=== PATIENT | female | born 1985 | race Caucasian/White ===

== ENCOUNTER 2016-09-02 17:10 | Emergency (ER) | payer SELFPAY ==
[~2016-09-02] VITALS: Ht 154.9 cm; Wt 61.2 kg
[~2016-09-02 17:10] MED LIST: AMOX500C2 PO; PRM25T PO
--- OUTSIDE RECORDS SUMMARY | 2016-09-02 17:15 | XMS REPORT | Continuity of Care Document ---
Author Author [facility] Organization [facility] Address Unknown Phone Unavailable Care Team Providers Care Voucher Clerk Name Role Phone VERO HA DO PCP Insurance Providers Payer Name Policy Number Subscriber Name Relationship Unknown Tyree Randall 19 Self / Same As Patient Advance Directives Directive Response Recorded Date/Time Advance Directives No 06/14/16 2:05pm Resuscitation Status Full Code 06/14/16 2:05pm Chief Complaint and Reason for Visit Chief Complaint Cough/Cold/Flu Symptoms Reason for Visit Sinusitis, acute Problems Active Problems Medical Problem Onset Date Status Abnormal vaginal bleeding Unknown Acute Cervicitis Unknown Acute Pelvic pain Unknown Acute Sinusitis, acute Unknown Acute Medications Current Home Medications Medication Dose Units Route Directions Days/Qty Instructions Start Date Amoxicillin 500 Mg 1,000 Mg Oral Three Times A Day 60 06/14/16 Past Home Medications Medication Directions Ordered Status Promethazine Hcl 25 Mg Tablet, 1 Tab Oral Four Times Daily 11/05/10 Discontinued Social History Social History Problem Response Recorded Date/Time Alcohol Use Occasionally Uses 04/10/2015 8:55am Recreational Drug Use No 04/10/2015 8:55am Recent Foreign Travel No 06/14/2016 2:05pm Recent Infectious Disease Exposure No 06/14/2016 2:05pm Smoking Status Current Everyday Smoker 06/14/2016 2:05pm Type Used Cigarettes 06/14/2016 2:05pm Recent Hopitalizations N ovarian cyst removal 06/14/2016 2:05pm Query Response Start Date Stop Date Smoking Status Current Everyday Smoker Hospital Discharge Instructions No hospital discharge instructions. Plan of Care Discharge Date 06/14/16 4:25pm Disposition 01 HOME, SELF-CARE Condition at Discharge Improved Instructions/Education Provided Sinusitis, Adult (DC) Forms Provided Work Release Form Prescriptions See Medication Section Referrals VERO HA DO - Primary Care Physician Additional Instructions/Education All discharge instructions reviewed with patient and/or family. Voiced understanding. Medications as instructed. Tylenol extra strength [id number] as directed for pain. Ibuprofen 800 mg by mouth every 8 hours as needed for pain. Afrin nasal spray 2-3 sprays in each nostril twice daily as needed for nasal congestion. Nasal saline spray as needed for nasal congestion. Cool humidifier. Follow-up with Dr. Ha if no improvement in symptoms. Return to the emergency department for worsened symptoms or any other concerns. Functional Status No functional status results. Allergies, Adverse Reactions, Alerts Allergen Type Severity Reaction Status Last Updated NKANo Known Allergies Allergy Unknown Active 06/14/16 Immunizations No immunization records. Vital Signs Acute Vital Signs Vital Response Date/Time Temperature (Fahrenheit) 97.4 degrees F (97.6 - 99.5) 06/14/2016 2:05pm Temperature (Calculated Celsius) 36.33410 degrees C (36.4 - 37.5) 06/14/2016 2:05pm Temperature Source Tympanic 06/14/2016 2:05pm Pulse Rate (adult) 100 bpm (60 - 90) 06/14/2016 2:05pm Respiratory Rate 18 bpm (12 - 24) 06/14/2016 2:05pm O2 Sat by Pulse Oximetry 98 % (88 - 100) 06/14/2016 2:05pm Blood Pressure 124/80 mm Hg 06/14/2016 2:05pm Blood Pressure Mean 95 mm Hg 06/14/2016 2:05pm Height (Feet) 5 feet 06/14/2016 2:05pm Height (Inches) 1.00 inches 06/14/2016 2:05pm Height (Calculated Centimeters) 154.112029 cm 06/14/2016 2:05pm Weight (Pounds) 120 pounds 06/14/2016 2:05pm Weight (Calculated Grams) 74271.085 gm 06/14/2016 2:05pm Weight (Calculated Kilograms) 54.303767 kilograms 06/14/2016 2:05pm Calculated BMI 21.09 06/14/2016 2:05pm Capillary Refill Capillary Refill Less Than 3 Seconds 06/14/2016 2:05pm Results Laboratory Results Test Name Result Units Flags Reference Collection Date/Time Result Date/ Time Comments Monoscreen NEGATIVE NEGATIVE 06/14/2016 2:51pm 06/14/2016 3:22pm Procedures No known history of procedures. Encounters Encounter Location Arrival/Admit Date Discharge/Depart Date Attending Provider Departed Emergency Room [facility] 06/14/16 1:38pm 06/14 4:25pm RTACI HOLLEY Recent Diagnosis
[2016-09-02] MEDS ORDERED: ORPHENADRINE 60 MG/2 ML (NORFLEX) AMP IM ONE (17:30)
[2016-09-02] MEDS ORDERED: KETOROLAC 60 MG/2 ML VIAL IM ONE (17:30)
[2016-09-02] MEDS ORDERED: NAPR500T PO (17:31)
[2016-09-02] MEDS ORDERED: fLEXERIL PO (17:31)
--- NOTE | 2016-09-02 17:32 | ED Upper Extremity ---
General Chief Complaint: Upper Extremity Stated Complaint: BILAT SHOULDER INJ/NUMBNESS Source: patient Exam Limitations: no limitations History of Present Illness Time seen by provider: 17:28 Initial Comments To ER with pain to the base of the neck on the right side that radiates down her hand as a sensation of tingling. She is stable able to make a fist and use her hand but states it is uncomfortable and feels heavy. This began 3 days ago. No injury. 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 Onset: last week Severity: moderate Pain/Injury Location: right shoulder Method of Injury: unknown Modifying Factors: Worse With Movement Allergies and Home Medications Allergies Coded Allergies: NKANo Known Allergies (Verified Allergy, Unknown, 06/14/16) Home Medications Amoxicillin 500 Mg Capsule #60 1,000 MG PO TID Prescribed by: TRACI HOLLEY on 06/14/16 1612 Constitutional: see HPI EENTM: see HPI Respiratory: no symptoms reported Cardiovascular: no symptoms reported Genitourinary: no symptoms reported Musculoskeletal: see HPI Skin: no symptoms reported Psychiatric/Neurological: No Symptoms Reported Past Esloblk-Ctkwiy-Csattr Hx Patient Social History Type Used: Cigarettes Recent Foreign Travel: No Contact w/Someone Who Travel: No Recent Hopitalizations: No (ovarian cyst removal) Immunizations Up To Date Tetanus Booster (TDap): More than 5yrs Surgeries HX Surgeries: Yes (ovarian cyst) Surgeries: Tubal Ligation Respiratory Hx Respiratory Disorders: No Cardiovascular Hx Cardiac Disorders: No Neurological Hx Neurological Disorders: No Reproductive System Hx Reproductive Disorders: No Female Reproductive Disorders: Ovarian Cyst Genitourinary Hx Genitourinary Disorders: No Gastrointestinal Hx Gastrointestinal Disorders: No Musculoskeletal Hx Musculoskeletal Disorders: No Endocrine Hx Endocrine Disorders: No HEENT HX ENT Disorders: No Psychosocial Hx Psychiatric Problems: No Blood Transfusions Hx Blood Disorders: No Family Medical History Significant Family History: Cancer, Diabetes Physical Exam Vital Signs Capillary Refill : General Appearance: WD/WN no apparent distress HEENT: PERRL/EOMI normal ENT inspection Neck: non-tender full range of motion Respiratory: no respiratory distress no accessory muscle use Gastrointestinal: non tender soft Shoulder: normal inspection non-tender Elbow/Forearm: normal inspection, non-tender, Right Wrist: Yes normal inspection, Yes non-tender Hand: normal inspection, non-tender, Right Neurologic/Tendon: normal sensation normal motor functions normal tendon functions Neurologic/Psychiatric: alert normal mood/affect oriented x 3 Skin: normal color Departure Impression Impression: Primary Impression: Cervical radiculopathy Disposition: 01 HOME, SELF-CARE Condition: Stable Departure-Patient Inst. Decision time for Depature: 17:30 Referrals: [facility] (PCP/Family) Primary Care Physician Patient Instructions: Radiculopathy Add. Discharge Instructions: 1. Return to ER for any concerns 2. Follow-up with your doctor next week to discuss MRI if her pain continues 3. All discharge instructions reviewed with patient and/or family. Voiced understanding. Scripts Naproxen (Naprosyn)500 Mg [id number] Mg PO BID PRN PAIN #14 TAB Prov:GIL COOK APRN 09/02/16 [fLEXERIL] No Conflict Check5 Mg PO TID PRN PAIN #20 Prov:GIL COOK APRN 09/02/16 Work/School Note: Work Release Form Date Seen in the Emergency Department: Sep 02, 2016 Return to Work: Sep 03, 2016 Other Restrictions Listed Below: Do not raise the right hand above shoulder and no lifting greater >5LBS GIL COOK APRN Sep 02, 2016 17:32
[2016-09-02 17:37] VITALS: BP 125/82
== END 2016-09-02 17:37 | disposition home or self-care (01) ==
LOC: EDUNIT# 17:10 → ER 17:12
DX: M54.12 Radiculopathy, cervical region (principal)
CPT/HCPCS: 96372; 99282

== ENCOUNTER 2017-01-21 12:34 | Emergency (ER) | payer SELFPAY ==
[~2017-01-21] VITALS: Ht 152.4 cm; Wt 59.0 kg
[~2017-01-21 12:34] MED LIST changes: +NAPR500T PO; +fLEXERIL PO
[2017-01-21] MEDS ORDERED: PRD20T PO (13:21)
--- NOTE | 2017-01-21 13:21 | ED Upper Extremity ---
General Chief Complaint: Neurological Problems Stated Complaint: RT ARM GOING NUMB Nursing Triage Note: PT AMBULATED TO ROOM. PT STATES HER RIGHT ARM HAS BEEN GOING NUMB FROM SHOULDER DOWN TO PT FINGERS, THIS HAS BEEN HAPPENING SINCE AUGUST OF THIS YEAR. Nursing Sepsis Screen: No Definite Risk Source: patient Exam Limitations: no limitations History of Present Illness Time seen by provider: 13:18 Initial Comments Patient presents to ER with persistent pain and tingling to the right arm. She states that she has a numb sensation. His pain seems to begin at the shoulder and progresses distally all the way down to the fingertips affecting the middle ring and little finger of the right hand. Occasionally while she is at work the pain will radiate up from the shoulder to the base of her neck. This is been bothering her since at least August of this year. She saw her primary care provider she states felt this was carpal tunnel syndrome. Onset: just prior to arrival Severity: moderate Pain/Injury Location: right shoulder, right arm, right elbow, right forearm, right wrist, right hand Method of Injury: unknown Allergies and Home Medications Allergies Coded Allergies: NKANo Known Allergies (Verified Allergy, Unknown, 06/14/16) Home Medications Naproxen 500 Mg Tablet, 500 MG PO BID PRN for PAIN, #14 Prescribed by: GIL COOK on 09/02/16 1731 Prednisone 20 Mg Tab, 40 MG PO DAILY, #8 Prescribed by: GIL COOK on 01/21/17 1321 [fLEXERIL] , 5 MG PO TID PRN for PAIN, #20 Prescribed by: GIL COOK on 09/02/16 1731 Constitutional: see HPI EENTM: see HPI Respiratory: no symptoms reported Cardiovascular: no symptoms reported Genitourinary: no symptoms reported Musculoskeletal: see HPI Skin: no symptoms reported Psychiatric/Neurological: No Symptoms Reported Past Ijwjjit-Kbsffp-Mvncod Hx Patient Social History Alcohol Use: Denies Use Recreational Drug Use: No Smoking Status: Current Everyday Smoker Type Used: Cigarettes 2nd Hand Smoke Exposure: No Recent Foreign Travel: No Contact w/Someone Who Travel: No Recent Infectious Disease Expo: No Recent Hopitalizations: No Immunizations Up To Date Tetanus Booster (TDap): More than 5yrs Seasonal Allergies Seasonal Allergies: No Surgeries HX Surgeries: Yes (ovarian cyst) Surgeries: Tubal Ligation Respiratory Hx Respiratory Disorders: No Cardiovascular Hx Cardiac Disorders: No Neurological Hx Neurological Disorders: No Reproductive System Hx Reproductive Disorders: No Female Reproductive Disorders: Ovarian Cyst Genitourinary Hx Genitourinary Disorders: No Gastrointestinal Hx Gastrointestinal Disorders: No Musculoskeletal Hx Musculoskeletal Disorders: No Endocrine Hx Endocrine Disorders: No HEENT HX ENT Disorders: No Psychosocial Hx Psychiatric Problems: No Blood Transfusions Hx Blood Disorders: No Family Medical History Significant Family History: Cancer, Diabetes Physical Exam Vital Signs Vital Sign - Last 12Hours 01/21/17 12:50 Temp 98.1 Pulse 88 Resp 20 B/P (MAP) 110/84 Pulse Ox 98 O2 Delivery Room Air Capillary Refill : Less Than 3 Seconds General Appearance: WD/WN, no apparent distress HEENT: PERRL/EOMI, normal ENT inspection Neck: non-tender, full range of motion Respiratory: no respiratory distress, no accessory muscle use Gastrointestinal: normal bowel sounds, non tender Shoulder: normal inspection, non-tender Elbow/Forearm: normal inspection, non-tender, Right Wrist: Yes normal inspection Hand: normal inspection, non-tender, Right Neurologic/Tendon: No normal sensation, normal motor functions, normal tendon functions Neurologic/Psychiatric: alert, normal mood/affect, oriented x 3 Skin: normal color, warm/dry Progress/Results/Core Measures Results/Orders Vital Signs/I&O Vital Sign - Last 12Hours 01/21/17 12:50 Temp 98.1 Pulse 88 Resp 20 B/P (MAP) 110/84 Pulse Ox 98 O2 Delivery Room Air Blood Pressure Mean: 93 Departure Impression Impression: Primary Impression: Cervical radiculopathy Disposition: 01 HOME, SELF-CARE Condition: Stable Departure-Patient Inst. Decision time for Depature: 13:20 Referrals: CHARISSA VALENZUELA BRIAN J MD Patient Instructions: Radiculopathy Add. Discharge Instructions: 1. Prednisone as directed 2. Return to ER for any concerns All discharge instructions reviewed with patient and/or family. Voiced understanding. Scripts Prednisone (Prednisone) 20 Mg Tab 40 MG PO DAILY, #8 TAB Prov: GIL COOK APRN 01/21/17 Work/School Note: Work Release Form Date Seen in the Emergency Department: Jan 21, 2017 Return to Work: Jan 22, 2017 GIL COOK APRN Jan 21, 2017 13:21
[2017-01-21 13:36] VITALS: BP 110/84
== END 2017-01-21 13:36 | disposition home or self-care (01) ==
LOC: EDUNIT# 12:34 → ER 12:37
DX: M54.12 Radiculopathy, cervical region (principal); F17.210 Nicotine dependence, cigarettes, uncomplicated
CPT/HCPCS: 99283

== ENCOUNTER 2017-07-12 03:05 | Emergency (ER) | payer SELFPAY ==
[~2017-07-12] VITALS: Ht 154.9 cm; Wt 61.2 kg
[~2017-07-12 03:05] MED LIST changes: +NAPR-1071 PO; -NAPR500T PO; +PRD20T PO
--- OUTSIDE RECORDS SUMMARY | 2017-07-12 03:10 | XMS REPORT ---
Author Author SHOBHA FENTON [facility] Address Unknown Care Team Providers Care Accounts Payable Or Receivable Clerk Name Role Phone SHOBHA FENTON Unavailable PROBLEMS Unknown Problems ALLERGIES No Known Allergies SOCIAL HISTORY Never Assessed PLAN OF CARE Activity Details Follow Up 1 Week Reason:Multi TE VITAL SIGNS Height 61 in 2016-11-19 Blood pressure systolic 124 mmHg 2016-11-19 Blood pressure diastolic 88 mmHg 2016-11-19 MEDICATIONS Medication Instructions Dosage Frequency Start Date End Date Duration Status Amoxicillin 500 MG Orally every 8 hrs 1 tablet 8h Nov, 10 days Active Naproxen 500 MG Orally Twice a day 1 tablet as needed for pain 12h Active Amoxicillin 500 MG Orally 4 times daily 1 capsule 7 days Active RESULTS No Results PROCEDURES Procedure Date Ordered Result Body Site LTD ORAL EVALUATION - PROBLEM FOCUS November 19, 2016 INTRAORL-PERIAPICAL 1 FILM [id number] November 19, 2016 INTRAORL-PERIAPICAL EA ADD FILM November 19, 2016 IMMUNIZATIONS No Known Immunizations MEDICAL (GENERAL) HISTORY Type Description Date Surgical History cyst removal
--- OUTSIDE RECORDS SUMMARY | 2017-07-12 03:10 | XMS REPORT ---
Author Author SRIDHAR WHITE [facility] Address [address] [place] [address] Care Team Providers Care Biomathematician Name Role Phone SRIDHAR WHITE Unavailable PROBLEMS Unknown Problems ALLERGIES No Information SOCIAL HISTORY Never Assessed PLAN OF CARE VITAL SIGNS MEDICATIONS No Known Medications RESULTS No Results PROCEDURES No Known procedures IMMUNIZATIONS No Known Immunizations MEDICAL (GENERAL) HISTORY Type Description Date Surgical History cyst removal
--- OUTSIDE RECORDS SUMMARY | 2017-07-12 03:10 | XMS REPORT ---
Author Author SRIDHAR WHITE [facility] Address [address] [place] [address] Care Team Providers Care Printing Press Machinist Name Role Phone SRIDHAR WHITE Unavailable PROBLEMS Unknown Problems ALLERGIES No Information SOCIAL HISTORY Never Assessed PLAN OF CARE Activity Details Follow Up 2-3 Weeks Reason:F/U PT VITAL SIGNS MEDICATIONS No Known Medications RESULTS No Results PROCEDURES Procedure Date Ordered Result Body Site THERAPEUTIC EXERCISES Sep 15, 2016 IMMUNIZATIONS No Known Immunizations MEDICAL (GENERAL) HISTORY Type Description Date Surgical History cyst removal
--- OUTSIDE RECORDS SUMMARY | 2017-07-12 03:11 | XMS REPORT ---
Author Author SRIDHAR WHITE [facility] Address [address] [place] [address] Care Team Providers Care Cap Cutter Name Role Phone SRIDHAR WHITE Unavailable PROBLEMS Unknown Problems ALLERGIES No Information SOCIAL HISTORY Never Assessed PLAN OF CARE Activity Details Follow Up 2 Weeks Reason:F/U [place] pain VITAL SIGNS MEDICATIONS No Known Medications RESULTS No Results PROCEDURES Procedure Date Ordered Result Body Site PT EVAL MOD COMPLEX 30 MIN Sep 10, 2016 THERAPEUTIC EXERCISES Sep 10, 2016 IMMUNIZATIONS No Known Immunizations MEDICAL (GENERAL) HISTORY Type Description Date Surgical History cyst removal
--- OUTSIDE RECORDS SUMMARY | 2017-07-12 03:11 | XMS REPORT ---
Author Author LEOPOLDO DOMINGUEZ [facility] Address [address] [place] [address] Care Team Providers Care Supervisor [place] Name Role Phone LEOPOLDO DOMINGUEZ Unavailable PROBLEMS Unknown Problems ALLERGIES Substance Reaction Event Type Date Status N.K.D.A. Unknown Non Drug Allergy Sep, Unknown SOCIAL HISTORY No smoking Hx information available PLAN OF CARE Activity Details Follow Up with Mahnaz Reason: VITAL SIGNS Height 61 in 2016-09-09 Weight 131.6 lbs 2016-09-09 Temperature 98.6 degrees Fahrenheit 2016-09-09 Heart Rate 72 bpm 2016-09-09 Respiratory Rate 18 2016-09-09 BMI 24.86 kg/m2 2016-09-09 Blood pressure systolic 118 mmHg 2016-09-09 Blood pressure diastolic 82 mmHg 2016-09-09 MEDICATIONS Medication Instructions Dosage Frequency Start Date End Date Duration Status Naproxen 500 MG Orally Twice a day 1 tablet as needed for pain 12h Active Cyclobenzaprine HCl 5 mg Orally Three times a day 1 tablet as needed for pain 8h Active RESULTS No Results PROCEDURES Procedure Date Ordered Related Diagnosis Body Site Office Visit, New Pt., Level 2 Sep 09, 2016 IMMUNIZATIONS No Known Immunizations
[2017-07-12] MEDS ORDERED: NS IV 1000 ML 1,000 ML IV ONE (03:48)
[2017-07-12 03:54] LABS: BILIRUBIN,URINE NEGATIVE (NEGATIVE); KETONES,URINE NEGATIVE (NEGATIVE); LEUKOCYTE ESTERASE ,URINE 1+ (NEGATIVE); NITRITE,URINE NEGATIVE (NEGATIVE); PH,URINE 8 (5-9); PROTEIN,URINE NEGATIVE (NEGATIVE); UROBILINOGEN,URINE 1 MG/DL (NORMAL)
[2017-07-12 04:01] LABS: WBC,URINE 0-2 /HPF
[2017-07-12 04:06] LABS: BASOPHILS % (AUTO) 0 % (0-10); EOSINOPHILS # (AUTO) 0.3 10^3/uL (0.0-0.3); EOSINOPHILS % (AUTO) 2 % (0-10); LYMPHOCYTES # (AUTO) 1.2 X 10^3 (1.0-4.0); LYMPHOCYTES % (AUTO) 7 % (12-44); MEAN CORPUSCULAR HEMOGLOBIN 33 PG (25-34); MEAN CORPUSCULAR HGB CONC 35 G/DL (32-36); MEAN CORPUSCULAR VOLUME 94 FL (80-99); MEAN PLATELET VOLUME 10.4 FL (7.4-10.4); MONOCYTES # (AUTO) 0.8 X 10^3 (0.0-1.0); MONOCYTES % (AUTO) 5 % (0-12); NEUTROPHILS # (AUTO) 13.4 X 10^3 (1.8-7.8); NEUTROPHILS % (AUTO) 85 % (42-75); PLATELET COUNT 330 10^3/uL (130-400); RED BLOOD COUNT 4.62 10^6/uL (4.35-5.85); RED CELL DISTRIBUTION WIDTH 12.9 % (10.0-14.5); WHITE BLOOD COUNT 15.8 10^3/uL (4.3-11.0)
[2017-07-12 04:25] LABS: ALANINE AMINOTRANSFERASE 14 U/L (0-55); ALBUMIN 4.2 GM/DL (3.2-4.5); ANION GAP 11 MMOL/L (5-14); ASPARTATE AMINO TRANSFERASE 14 U/L (5-34); BILIRUBIN,TOTAL 0.4 MG/DL (0.1-1.0); BLOOD UREA NITROGEN 9 MG/DL (7-18); BUN/CREATININE RATIO 14; CALCIUM 8.7 MG/DL (8.5-10.1); CARBON DIOXIDE 20 MMOL/L (21-32); CHLORIDE 107 MMOL/L (98-107); CREATININE SERUM 0.64 MG/DL (0.60-1.30); GFR ESTIMATED > 60; GLUCOSE 110 MG/DL (70-105); POTASSIUM 3.8 MMOL/L (3.6-5.0); SODIUM 138 MMOL/L (135-145); TOTAL PROTEIN 6.5 GM/DL (6.4-8.2)
[2017-07-12 04:29] LABS: BAND NEUTROPHILS 0 %; BASOPHILS % (MANUAL) 1 %; EOSINOPHILS % (MANUAL) 3 %; LYMPHOCYTES % (MANUAL) 5 %; NEUTROPHILS % (MANUAL) 82 %
--- NOTE | 2017-07-12 04:29 | ED GI ---
General Chief Complaint: Abdominal/GI Problems Stated Complaint: VOMITING AB PAIN Nursing Triage Note: Pt c/o abdominal pain that began last night. Sepsis Screen: No Definite Risk Source of Information: Patient Exam Limitations: No Limitations History of Present Illness Time Seen By Provider: 03:50 Initial Comments Here with report of abdominal pain and diarrhea that began last night. She did take a Zofran and Pepcid for nausea and stomach upset and that did help for a little while but then worsened. Also complains of chills and back pain. Denies dysuria. Timing/Duration: 12 Hours Severity/Quality: Moderate Location: Generalized Abdomen Radiation: Back Activities at Onset: None Modifying Factors: Improves With Antacids Associated Symptoms: Back Pain, Fever/Chills, Fatigue, Heartburn, Nausea/ Vomiting, No Swelling/Mass in Abdomen, Weakness Allergies and Home Medications Allergies Coded Allergies: NKANo Known Allergies (Verified Allergy, Unknown, 06/14/16) Home Medications Naproxen 500 Mg Tablet, 500 MG PO BID PRN for PAIN, #14 Prescribed by: GIL COOK on 09/02/16 1731 Prednisone 20 Mg Tab, 40 MG PO DAILY, #8 Prescribed by: GIL COOK on 01/21/17 1321 [fLEXERIL] , 5 MG PO TID PRN for PAIN, #20 Prescribed by: GIL COOK on 09/02/16 1731 Review of Systems Constitutional: see HPI, chills, No fever EENTM: No Symptoms Reported Respiratory: No Symptoms Reported Cardiovascular: No Symptoms Reported Gastrointestinal: See HPI, Abdominal Pain, Diarrhea, Nausea, Vomiting Genitourinary: No Symptoms Reported Musculoskeletal: back pain, muscle pain Skin: no symptoms reported Psychiatric/Neurological: No Symptoms Reported All Other Systems Reviewed Negative Unless Noted: Yes Past Ncqqinf-Kputri-Kyjhqd Hx Patient Social History Alcohol Use: Denies Use Recreational Drug Use: No Smoking Status: Current Everyday Smoker Type Used: Cigarettes 2nd Hand Smoke Exposure: No Recent Foreign Travel: No Contact w/Someone Who Travel: No Recent Infectious Disease Expo: No Recent Hopitalizations: No Physical Abuse: No Sexual Abuse: No Mistreated: No Fear: No Immunizations Up To Date Tetanus Booster (TDap): More than 5yrs Seasonal Allergies Seasonal Allergies: No Surgeries History of Surgeries: Yes (ovarian cyst) Surgeries: Tubal Ligation Respiratory History of Respiratory Disorde: No Cardiovascular History of Cardiac Disorders: No Neurological History of Neurological Disord: No Reproductive System Hx Reproductive Disorders: No Female Reproductive Disorders: Ovarian Cyst Genitourinary History of Genitourinary Disor: No Gastrointestinal History of Gastrointestinal Di: No Musculoskeletal History of Musculoskeletal Dis: No Endocrine History of Endocrine Disorders: No HEENT History of HEENT Disorders: No Cancer History of Cancer: No Psychosocial History of Psychiatric Problem: No Suicide Risk Score: 1 Integumentary History of Skin or Integumenta: No Blood Transfusions History of Blood Disorders: No Reviewed Nursing Assessment Reviewed/Agree w Nursing PMH: Yes Family Medical History Significant Family History: No Pertinent Family Hx, Cancer, Diabetes Physical Exam Vital Signs VS - Last 72 Hours, by Label 07/12/17 03:23 Temp 98.2 Pulse 101 Resp 18 B/P (MAP) 117/85 (96) Pulse Ox 98 O2 Delivery Room Air Capillary Refill : Less Than 3 Seconds General Appearance: WD/WN, no apparent distress HEENT: PERRL/EOMI, pharynx normal Neck: full range of motion, supple Respiratory: lungs clear, normal breath sounds Cardiovascular: no murmur, tachycardia Peripheral Pulses: 2+ Dorsalis Pedis (R), 2+ Left Dors-Pedis (L), 2+ Radial Pulses (R), 2+ Radial Pulses (L) Gastrointestinal: non tender, soft Extremities: non-tender, normal inspection Back: normal inspection, no CVA tenderness, no vertebral tenderness Neurologic/Psychiatric: alert, oriented x 3 Skin: normal color, warm/dry Progress/Results/Core Measures Results/Orders Lab Results Laboratory Tests Test 07/12/17 03:35 07/12/17 03:55 Range/Units Urine Color YELLOW Urine Clarity SLIGHTLY CLOUDY Urine pH 8 5-9 Urine Specific Sisters 1.010 L 1.016-1.022 Urine Protein NEGATIVE NEGATIVE Urine Glucose (UA) NEGATIVE NEGATIVE Urine Ketones NEGATIVE NEGATIVE Urine Nitrite NEGATIVE NEGATIVE Urine Bilirubin NEGATIVE NEGATIVE Urine Urobilinogen 1 NORMAL MG/DL Urine Leukocyte Esterase 1+ H NEGATIVE Urine RBC (Auto) NEGATIVE NEGATIVE Urine RBC NONE /HPF Urine WBC 0-2 /HPF Urine Squamous Epithelial Cells 10-25 H /HPF Urine Crystals PRESENT H /LPF Urine Amorphous Sediment FEW NEEMA PHOSPHATE H /LPF Urine Bacteria MODERATE H /HPF Urine Casts NONE /LPF Urine Mucus MODERATE H /LPF Urine Culture Indicated YES Urine Opiates Screen NEGATIVE NEGATIVE Urine Oxycodone Screen NEGATIVE NEGATIVE Urine Methadone Screen NEGATIVE NEGATIVE Urine Propoxyphene Screen NEGATIVE NEGATIVE Urine Barbiturates Screen NEGATIVE NEGATIVE Ur Tricyclic Antidepressants Screen NEGATIVE NEGATIVE Urine Phencyclidine Screen NEGATIVE NEGATIVE Urine Amphetamines Screen POSITIVE H NEGATIVE Urine Methamphetamines Screen POSITIVE H NEGATIVE Urine Benzodiazepines Screen NEGATIVE NEGATIVE Urine Cocaine Screen NEGATIVE NEGATIVE Urine Cannabinoids Screen NEGATIVE NEGATIVE White Blood Count 15.8 H 4.3-11.0 10^3/uL Red Blood Count 4.62 4.35-5.85 10^6/uL Hemoglobin 15.1 11.5-16.0 G/DL Hematocrit 44 35-52 % Mean Corpuscular Volume 94 80-99 FL Mean Corpuscular Hemoglobin 33 25-34 PG Mean Corpuscular Hemoglobin Concent 35 32-36 G/DL Red Cell Distribution Width 12.9 10.0-14.5 % Platelet Count 330 130-400 10^3/uL Mean Platelet Volume 10.4 7.4-10.4 FL Neutrophils (%) (Auto) 85 H 42-75 % Lymphocytes (%) (Auto) 7 L 12-44 % Monocytes (%) (Auto) 5 0-12 % Eosinophils (%) (Auto) 2 0-10 % Basophils (%) (Auto) 0 0-10 % Neutrophils # (Auto) 13.4 H 1.8-7.8 X 10^3 Lymphocytes # (Auto) 1.2 1.0-4.0 X 10^3 Monocytes # (Auto) 0.8 0.0-1.0 X 10^3 Eosinophils # (Auto) 0.3 0.0-0.3 10^3/uL Basophils # (Auto) 0.0 0.0-0.1 10^3/uL Neutrophils % (Manual) 82 % Lymphocytes % (Manual) 5 % Monocytes % (Manual) 9 % Eosinophils % (Manual) 3 % Basophils % (Manual) 1 % Band Neutrophils 0 % Toxic Granulation 1+ Blood Morphology Comment NORMAL Sodium Level 138 135-145 MMOL/L Potassium Level 3.8 3.6-5.0 MMOL/L Chloride Level 107 98-107 MMOL/L Carbon Dioxide Level 20 L 21-32 MMOL/L Anion Gap 11 5-14 MMOL/L Blood Urea Nitrogen 9 7-18 MG/DL Creatinine 0.64 0.60-1.30 MG/DL Estimat Glomerular Filtration Rate > 60 BUN/Creatinine Ratio 14 Glucose Level 110 H 70-105 MG/DL Calcium Level 8.7 8.5-10.1 MG/DL Total Bilirubin 0.4 0.1-1.0 MG/DL Aspartate Amino Transf (AST/SGOT) 14 5-34 U/L Alanine Aminotransferase (ALT/SGPT) 14 0-55 U/L Alkaline Phosphatase 66 40-136 U/L C-Reactive Protein High Sensitivity 0.50 0.00-0.50 MG/DL Total Protein 6.5 6.4-8.2 GM/DL Albumin 4.2 3.2-4.5 GM/DL My Orders Orders - EUGENIA ALBERT MD Cbc With Automated Diff (07/12/17 03:48) Comprehensive Metabolic Panel (07/12/17 03:48) Hs C Reactive Protein (07/12/17 03:48) Drug Screen Stat (Urine) (07/12/17 03:48) Ua Culture If Indicated (07/12/17 03:48) Saline Lock/Iv-Start (07/12/17 03:48) Ns Iv 1000 Ml (Sodium Chloride 0.9%) (07/12/17 03:48) Urine Culture (07/12/17 03:35) Manual Differential (07/12/17 03:55) Ondansetron Injection (Zofran Injectio (07/12/17 05:30) Ketorolac Injection (Toradol Injection) (07/12/17 05:20) Rx-Ondansetron Po (Rx-Zofran Po) (07/12/17 05:20) Ketorolac Injection (Toradol Injection) (07/12/17 05:21) Famotidine Injection (Pepcid Injection) (07/12/17 05:21) Rx-Ondansetron Po (Rx-Zofran Po) (07/12/17 05:22) Famotidine Injection (Pepcid Injection) (07/12/17 05:26) Medications Given in ED Current Medications Medications Dose Ordered Sig/Nicolette Route Start Time Stop Time Status Last Admin Dose Admin Sodium Chloride 1,000 ml @ 0 mls/hr Q0M ONCE IV 07/12/17 03:48 07/12/17 03:50 DC 07/12/17 03:59 0 MLS/HR Vital Signs/I&O Vital Sign - Last 12Hours 07/12/17 03:23 Temp 98.2 Pulse 101 Resp 18 B/P (MAP) 117/85 (96) Pulse Ox 98 O2 Delivery Room Air Blood Pressure Mean: 96 Progress Note : Progress Note Seen and evaluated. IV, labs, UA, normal saline 1 L bolus ordered. Monitor patient. 0510: I did discuss with the patient about concerns for methamphetamine use. She admitted single use a few days ago. Cautioned to avoid this patient states that she had made that decision already. Pepcid 20 mg IV, Toradol 30 mg IV and Zofran go pack ordered. Discharged home with return precautions. Patient verbalize understanding instructions and agreement with plan. Departure Impression Impression: Primary Impression: Diarrhea Qualified Codes: R19.7 - Diarrhea, unspecified Additional Impressions: Nausea and vomiting Qualified Codes: R11.2 - Nausea with vomiting, unspecified Urinary tract infection Qualified Codes: N30.00 - Acute cystitis without hematuria Disposition: ADMITTED INPATIENT Condition: Stable Departure-Patient Inst. Referrals: [facility] (PCP/Family) Primary Care Physician Patient Instructions: Acute Abdomen (Belly Pain), Adult (DC), Diarrhea in Adolescents and Adults, Nausea and Vomiting, Adult (DC), Urinary Tract Infection , Adult (DC) Add. Discharge Instructions: All discharge instructions reviewed with patient and/or family. Voiced understanding. Take medications as directed. Follow-up with your Dr. in a few days for recheck. Return for worse pain, fever, vomiting, weakness, breathing problems or other concerns as needed. You may take Pepcid or the generic famotidine 20 mg twice daily for the next 3 days and then daily thereafter as needed. Scripts Ciprofloxacin HCl (Ciprofloxacin HCl) 500 Mg Tablet 500 MG PO BID, #6 TAB Prov: EUGENIA ALBERT MD 07/12/17 EUGENIA ALBERT MD Jul 12, 2017 04:29
[2017-07-12] MEDS ORDERED: RX-ONDANSETRON 4 MG ODT (ZOFRAN) PPK #4 PO STA (05:20)
[2017-07-12] MEDS ORDERED: KETOROLAC 30 MG/ML VIAL IVP STA (05:20)
[2017-07-12] MEDS ORDERED: FAMOTIDINE 20MG/2ML IV (PEPCID) ONE (05:21)
[2017-07-12] MEDS ORDERED: KETOROLAC 30 MG/ML VIAL ONE (05:21)
[2017-07-12] MEDS ORDERED: RX-ONDANSETRON 4 MG ODT (ZOFRAN) PPK #4 ONE (05:22)
[2017-07-12] MEDS ORDERED: FAMOTIDINE 20MG/2ML IV (PEPCID) IV STA (05:26)
[2017-07-12] MEDS ORDERED: ONDANSETRON 4 MG/2 ML (SDV) Z0FRAN IVP ONE (05:30)
[2017-07-12] MEDS ORDERED: CIPR500T4 PO (05:38)
[2017-07-12 05:39] VITALS: BP 115/70
== END 2017-07-12 05:39 | disposition other institution (70) ==
LOC: EDUNIT# 03:05 → ER 03:07
DX: N39.0 Urinary tract infection, site not specified (principal); R19.7 Diarrhea, unspecified; F17.210 Nicotine dependence, cigarettes, uncomplicated; Z98.51 Tubal ligation status; Z87.448 Personal history of other diseases of urinary system
CPT/HCPCS: 36415; 80053; 80306; 81000; 85007; 85027; 86141; 87088

== ENCOUNTER 2018-05-06 12:06 | Emergency (ER) | payer SELFPAY ==
[~2018-05-06] VITALS: Ht 154.9 cm; Wt 59.0 kg
[~2018-05-06 12:06] MED LIST changes: +CIPR500T4 PO
--- OUTSIDE RECORDS SUMMARY | 2018-05-06 12:10 | XMS REPORT ---
Author Author YESENIA CARDENAS [facility] Address [address] [place] [address] Care Team Providers Care Epitaxial Reactor Operator Name Role Phone YESENIA CARDENAS Unavailable PROBLEMS Unknown Problems ALLERGIES No Known Allergies ENCOUNTERS Encounter Location Date Diagnosis [facility] [address] [phone] December, Cough R05 and Upper respiratory tract infection, unspecified type J06.9 [facility] [address] [id number] Jan, Dental caries K02.9 [facility] [address] [id number] Nov, Dental examination Z01.20 [facility] [address] [phone] Oct, Trapezius muscle spasm M62.838 [facility] [id number] [place] [phone] Oct, [facility] [id number] [place] [phone] Sep, Trapezius muscle spasm M62.838 [facility] [id number] [place] [phone] Sep, Trapezius muscle spasm M62.838 [facility] [address] [phone] Sep, Trapezius muscle spasm M62.838 [facility] [id number] [place] [address] Jan, Dental caries K02.9 [facility] [id number] [place], [place] [phone] 07 Jan, 2016 Dental examination Z01.20 [facility] [address] [facility] [id number] [place], [place] [phone] 09 Apr, 2015 IMMUNIZATIONS No Known Immunizations SOCIAL HISTORY Never Assessed REASON FOR VISIT Coughing so much that she is gagging and throwing up. Feels like she needs an inhaler to catching her breath. Stomach pain started today. Has had cough for 2 wks., skin tag on left arm PLAN OF CARE Activity Details Follow Up 2 Weeks, prn Reason:if symptoms worsen or not improving VITAL SIGNS Height 61 in 2017-12-15 Weight 131.3 lbs 2017-12-15 Temperature 98.0 degrees Fahrenheit 2017-12-15 Heart Rate 88 bpm 2017-12-15 Respiratory Rate 20 2017-12-15 BMI 24.81 kg/m2 2017-12-15 Blood pressure systolic 104 mmHg 2017-12-15 Blood pressure diastolic 72 mmHg 2017-12-15 MEDICATIONS Medication Instructions Dosage Frequency Start Date End Date Duration Status Benzonatate 200 mg Orally Three times a day 1 capsule 8h December, December, 14 days Active Azithromycin 250 MG Orally Once a day 2 tablets on the first day, then 1 tablet daily for 4 days 24h December, December, 5 day(s) Active Mucinex Active RESULTS No Results PROCEDURES No Known procedures INSTRUCTIONS MEDICATIONS ADMINISTERED No Known Medications MEDICAL (GENERAL) HISTORY Type Description Date Surgical History cyst removal
--- OUTSIDE RECORDS SUMMARY | 2018-05-06 12:10 | XMS REPORT ---
Author Author JARETSHOBHA ROSADO [facility] Address Unknown Care Team Providers Care Head Custodian Name Role Phone HSOBHA FENTON Unavailable PROBLEMS Unknown Problems ALLERGIES No Known Allergies ENCOUNTERS Encounter Location Date Diagnosis [facility] [id number] [place] [phone] Jan, Dental caries K02.9 [facility] [id number] [place] [phone] Nov, Dental examination Z01.20 [facility] [id number] [place] [phone] Oct, Trapezius muscle spasm M62.838 [facility] [id number] [place] [phone] Oct, [facility] [id number] [place] [phone] Sep, Trapezius muscle spasm M62.838 [facility] [id number] [place] [phone] Sep, Trapezius muscle spasm M62.838 [facility] [id number] [place] [phone] Sep, Trapezius muscle spasm M62.838 [facility] [id number] [place] [phone] Jan, Dental caries K02.9 [facility] [id number] [place] [phone] 07 Jan, 2016 Dental examination Z01.20 [facility] [id number] [place] [phone] Apr, IMMUNIZATIONS No Known Immunizations SOCIAL HISTORY Never Assessed REASON FOR VISIT multi te PLAN OF CARE Activity Details Follow Up prn Reason:as needed VITAL SIGNS Height 61 in 2017-02-06 Blood pressure systolic 115 mmHg 2017-02-06 Blood pressure diastolic 79 mmHg 2017-02-06 MEDICATIONS No Known Medications RESULTS No Results PROCEDURES Procedure Date Ordered Result Body Site EXTRAC ERUPTED TOOTH/EXPOSED ROOT February 06, 2017 EXTRAC ERUPTED TOOTH/EXPOSED ROOT February 06, 2017 EXTRAC ERUPTED TOOTH/EXPOSED ROOT February 06, 2017 INSTRUCTIONS MEDICATIONS ADMINISTERED No Known Medications MEDICAL (GENERAL) HISTORY Type Description Date Surgical History cyst removal
--- OUTSIDE RECORDS SUMMARY | 2018-05-06 12:11 | XMS REPORT | Continuity of Care Document ---
Author Author [facility] Organization [facility] Address Unknown Phone Unavailable Allergies Active Description Code Type Severity Reaction Onset Reported/Identified Relationship to Patient Clinical Status Yes NKANo Known Allergies NKA Miscellaneous Allergy Unknown N/A 06/14/2016 Medications There is no data. Problems Date Dx Coded Attending Type Code Diagnosis Diagnosed By 11/05/2010 Ot 079.99 11/05/2010 Ot 725 11/05/2010 Ot 787.91 04/10/2015 MADHAVI DESAI, LANA Medina Ot 616.0 CERVICITIS 04/10/2015 MADHAVI DESAI, LANA Medina Ot 623.8 NONINFLAM DIS VAGINA NEC 04/10/2015 MADHAVI DESAI, LANA Medina Ot 724.2 LUMBAGO 06/14/2016 TRACI FINK Ot F17.210 NICOTINE DEPENDENCE, CIGARETTES, UNCOMPL 06/14/2016 TRACI FINK Ot J01.90 ACUTE SINUSITIS, UNSPECIFIED 06/14/2016 TRACI FINK Ot J02.9 ACUTE PHARYNGITIS, UNSPECIFIED 06/16/2016 TRACI FINK Ot F17.210 NICOTINE DEPENDENCE, CIGARETTES, UNCOMPL 06/16/2016 TRACI FINK Ot J01.90 ACUTE SINUSITIS, UNSPECIFIED 06/16/2016 TRACI FINK Ot J02.9 ACUTE PHARYNGITIS, UNSPECIFIED 09/02/2016 GIL COOK APRN Ot M54.12 RADICULOPATHY, CERVICAL REGION 09/02/2016 GIL COOK APRN Ot R20.0 ANESTHESIA OF SKIN 09/03/2016 GIL COOK APRN Ot M54.12 RADICULOPATHY, CERVICAL REGION 09/03/2016 GIL COOK APRN Ot R20.0 ANESTHESIA OF SKIN 01/21/2017 GIL COOK APRN Ot F17.210 NICOTINE DEPENDENCE, CIGARETTES, UNCOMPL 01/21/2017 GIL COOK PUBLIC RELATIONS PROFESSIONAL Ot M54.12 RADICULOPATHY, CERVICAL REGION 01/21/2017 GIL COOK PUBLIC RELATIONS PROFESSIONAL Ot M79.601 PAIN IN RIGHT ARM 01/23/2017 GIL COOK PUBLIC RELATIONS PROFESSIONAL Ot F17.210 NICOTINE DEPENDENCE, CIGARETTES, UNCOMPL 01/23/2017 GIL COOK APRN Ot M54.12 RADICULOPATHY, CERVICAL REGION 01/23/2017 GIL COOK APRN Ot M79.601 PAIN IN RIGHT ARM Procedures There is no data. Results Test Result Range Serum heterophile antibody titer - 06/14/16 14:51 Serum heterophile antibody titer NEGATIVE NEGATIVE Complete urinalysis with reflex to culture - 07/12/17 03:35 Urine color determination YELLOW NRG Urine clarity determination SLIGHTLY CLOUDY NRG Urine pH measurement by test strip 8 5-9 Specific gravity of urine by test strip 1.010 1.016- 1.022 Urine protein assay by test strip, semi-quantitative NEGATIVE NEGATIVE Urine glucose detection by automated test strip NEGATIVE NEGATIVE Erythrocytes detection in urine sediment by light microscopy NEGATIVE NEGATIVE Urine ketones detection by automated test strip NEGATIVE NEGATIVE Urine nitrite detection by test strip NEGATIVE NEGATIVE Urine total bilirubin detection by test strip NEGATIVE NEGATIVE Urine urobilinogen measurement by automated test strip (mass/volume) 1 mg/dL NORMAL Urine leukocyte esterase detection by dipstick 1+ NEGATIVE Automated urine sediment erythrocyte count by microscopy (number/high power field) NONE NRG Automated urine sediment leukocyte count by microscopy (number/high power field ) [HPF] NRG Bacteria detection in urine sediment by light microscopy MODERATE NRG Squamous epithelial cells detection in urine sediment by light microscopy 10-25 NRG Crystals detection in urine sediment by light microscopy PRESENT NRG Casts detection in urine sediment by light microscopy NONE NRG Mucus detection in urine sediment by light microscopy MODERATE NRG Complete urinalysis with reflex to culture YES NRG Amorphous sediment detection in urine sediment by light microscopy FEW NEEMA PHOSPHATE NRG Urine drug screening test - 07/12/17 03:35 Urine phencyclidine detection by screening method NEGATIVE NEGATIVE Urine benzodiazepines detection by screening method NEGATIVE NEGATIVE Urine cocaine detection NEGATIVE NEGATIVE Urine amphetamines detection by screening method POSITIVE NEGATIVE Urine methamphetamine detection by screening method POSITIVE NEGATIVE Urine cannabinoids detection by screening method NEGATIVE NEGATIVE Urine opiates detection by screening method NEGATIVE NEGATIVE Urine barbiturates detection NEGATIVE NEGATIVE Screening urine tricyclic antidepressants detection NEGATIVE NEGATIVE Urine methadone detection by screening method NEGATIVE NEGATIVE Urine oxycodone detection NEGATIVE NEGATIVE Urine propoxyphene detection NEGATIVE NEGATIVE Bacterial urine culture - 07/12/17 03:35 URINE CULTURE RESULTS MORE THAN 3 ISOLATES NR Complete blood count (CBC) with automated white blood cell (WBC) differential - 07/12/17 03:55 Blood leukocytes automated count (number/volume) 15.8 10*3/uL 4.3-11.0 Blood erythrocytes automated count (number/volume) 4.62 10*6/uL 4.35-5.85 Venous blood hemoglobin measurement (mass/volume) 15.1 g/dL 11.5-16.0 Blood hematocrit (volume fraction) 44 % 35-52 Automated erythrocyte mean corpuscular volume 94 [foz_us] 80-99 Automated erythrocyte mean corpuscular hemoglobin (mass per erythrocyte) 33 pg 25-34 Automated erythrocyte mean corpuscular hemoglobin concentration measurement ( mass/volume) 35 g/dL 32-36 Automated erythrocyte distribution width ratio 12.9 % 10.0-14.5 Automated blood platelet count (count/volume) 330 10*3/uL 130-400 Automated blood platelet mean volume measurement 10.4 [foz_us] 7.4-10.4 Automated blood neutrophils/100 leukocytes 85 % 42-75 Automated blood lymphocytes/100 leukocytes 7 % 12-44 Blood monocytes/100 leukocytes 5 % 0-12 Automated blood eosinophils/100 leukocytes 2 % 0-10 Automated blood basophils/100 leukocytes 0 % 0-10 Blood neutrophils automated count (number/volume) 13.4 10*3 1.8-7.8 Blood lymphocytes automated count (number/volume) 1.2 10*3 1.0-4.0 Blood monocytes automated count (number/volume) 0.8 10*3 0.0-1.0 Automated eosinophil count 0.3 10*3/uL 0.0-0.3 Automated blood basophil count (count/volume) 0.0 10*3/uL 0.0-0.1 Comprehensive metabolic panel - 07/12/17 03:55 Serum or plasma sodium measurement (moles/volume) 138 mmol/L 135-145 Serum or plasma potassium measurement (moles/volume) 3.8 mmol/L 3.6-5.0 Serum or plasma chloride measurement (moles/volume) 107 mmol/L 98-107 Carbon dioxide 20 mmol/L 21-32 Serum or plasma anion gap determination (moles/volume) 11 mmol/L 5-14 Serum or plasma urea nitrogen measurement (mass/volume) 9 mg/dL 7-18 Serum or plasma creatinine measurement (mass/volume) 0.64 mg/dL 0.60-1.30 Serum or plasma urea nitrogen/creatinine mass ratio 14 NRG Serum or plasma creatinine measurement with calculation of estimated glomerular filtration rate > NRG Serum or plasma glucose measurement (mass/volume) 110 mg/dL 70-105 Serum or plasma calcium measurement (mass/volume) 8.7 mg/dL 8.5-10.1 Serum or plasma total bilirubin measurement (mass/volume) 0.4 mg/dL 0.1-1.0 Serum or plasma alkaline phosphatase measurement (enzymatic activity/volume) 66 U/L 40-136 Serum or plasma aspartate aminotransferase measurement (enzymatic activity/ volume) 14 U/L 5-34 Serum or plasma alanine aminotransferase measurement (enzymatic activity/volume ) 14 U/L 0-55 Serum or plasma protein measurement (mass/volume) 6.5 g/dL 6.4-8.2 Serum or plasma albumin measurement (mass/volume) 4.2 g/dL 3.2-4.5 Serum or plasma C reactive protein measurement (mass/volume) - 07/12/17 03:55 Serum or plasma C reactive protein measurement (mass/volume) 0.50 mg /dL 0.00-0.50 Blood manual differential performed detection - 07/12/17 03:55 Blood monocytes/100 leukocytes 9 % NRG Manual blood segmented neutrophils/100 leukocytes 82 % NRG Blood band neutrophils/100 leukocytes 0 % NRG Manual blood lymphocytes/100 leukocytes 5 % NRG Manual eosinophils/100 leukocytes in nose 3 % NRG Manual blood basophils/100 leukocytes 1 % NRG Blood erythrocyte morphology finding identification NORMAL NRG Blood toxic granules detection by light microscopy 1+ NRG Encounters ACCT No. Visit Date/Time Discharge Status Pt. Type Provider Facility Loc./Unit Complaint [id number] 07/12/2017 03:07:00 07/12/2017 05:39:00 DIS Emergency BETY DESAI, EUGENIA Low [facility] ER VOMITING AB PAIN [id number] 01/21/2017 12:37:00 01/21/2017 13:36:00 DIS Emergency GIL COOK APRN [facility] ER RT ARM GOING NUMB [id number] 09/02/2016 17:12:00 09/02/2016 17:37:00 DIS Emergency GIL COOK PUBLIC RELATIONS PROFESSIONAL [facility] ER BILAT SHOULDER INJ/ NUMBNESS [id number] 06/14/2016 13:38:00 06/14/2016 16:25:00 DIS Emergency TRACI FINK [facility] ER POSS MONO [id number] 04/10/2015 08:45:00 04/10/2015 12:25:00 DIS Emergency MADHAVI DESAI, LANA Medina [facility] ER ABD/BACK PAIN [id number] 11/05/2010 12:33:00 Document Registration [id number] 04/10/2015 08:46:27 ACT Document Registration [id number] 12/15/2017 13:40:00 12/15/2017 23:59:59 CLS Out[facility]
[2018-05-06] MEDS ORDERED: AZIT250T PO (12:13)
[2018-05-06] MEDS ORDERED: PRD20T PO (12:13)
[2018-05-06] MEDS ORDERED: HYDR-4226 PO (12:13)
--- NOTE | 2018-05-06 12:13 | ED Cough/URI ---
General Stated Complaint: CHEST PAIN Source: patient Exam Limitations: no limitations History of Present Illness Date Seen by Provider: May 06, 2018 Time Seen by Provider: 12:11 Initial Comments To ER with right lateral chest wall pain. She's had a productive cough for about 3 months. She has not been on antibiotics or steroids for this. She coughs to the point that she vomits. Today after an episode of coughing she developed some severe right lateral chest wall pain worse with deep breathing. No fevers or chills. Timing/Duration: week, getting worse Severity/Quality: productive cough Associated Symptoms: cough, shortness of breath Allergies and Home Medications Allergies Coded Allergies: NKANo Known Allergies (Verified Allergy, Unknown, 06/14/16) Home Medications Ciprofloxacin HCl 500 Mg Tablet, 500 MG PO BID Prescribed by: EUGENIA ALBERT on 07/12/17 0538 Naproxen 500 Mg Tablet, 500 MG PO BID PRN for PAIN Prescribed by: GIL COOK on 09/02/16 173 Prednisone 20 Mg Tab, 40 MG PO DAILY Prescribed by: GIL COOK on 01/21/17 1321 [fLEXERIL] , 5 MG PO TID PRN for PAIN Prescribed by: GIL COOK on 09/02/16 1731 Patient Home Medication List Home Medication List Reviewed: Yes Review of Systems Review of Systems Constitutional: see HPI; No chills, No fever EENTM: see HPI Respiratory: see HPI, cough Cardiovascular: no symptoms reported Genitourinary: no symptoms reported Musculoskeletal: no symptoms reported Skin: no symptoms reported Psychiatric/Neurological: No Symptoms Reported Past Lscdair-Cgclmg-Indwsh Hx Patient Social History Type Used: Cigarettes 2nd Hand Smoke Exposure: No Recent Hopitalizations: No Immunizations Up To Date Tetanus Booster (TDap): More than 5yrs Seasonal Allergies Seasonal Allergies: No Past Medical History Surgeries: Yes (ovarian cyst) Tubal Ligation Respiratory: No Cardiac: No Neurological: No Reproductive Disorders: No Female Reproductive Disorders: Ovarian Cyst Genitourinary: No Gastrointestinal: No Musculoskeletal: No Endocrine: No HEENT: No Cancer: No Psychosocial: No Integumentary: No Blood Disorders: No Family Medical History No Pertinent Family Hx, Cancer, Diabetes Physical Exam Capillary Refill : Height: 5'1.00" Weight: 135lbs. oz. 61.126561ks; 21.09 BMI Method:Stated General Appearance: WD/WN, no apparent distress Eyes: Bilateral Eye Normal Inspection, Bilateral Eye PERRL, Bilateral Eye EOMI HEENT: PERRL/EOMI, normal ENT inspection Neck: non-tender, full range of motion Respiratory: normal breath sounds, no respiratory distress, no accessory muscle use Cardiovascular: regular rate, rhythm, no murmur Gastrointestinal: normal bowel sounds, non tender, soft Extremities: normal range of motion, non-tender Neurologic/Psychiatric: alert, normal mood/affect, oriented x 3 Skin: normal color, warm/dry Progress/Results/Core Measures Suspected Sepsis SIRS Temperature: Pulse: Respiratory Rate: Blood Pressure / Mean: Results/Orders My Orders Orders - GIL COOK APRN Chest Pa/Lat (2 View) (05/06/18 12:10) Vital Signs/I&O Capillary Refill : Departure Impression Primary Impression: Bronchitis Additional Impression: Chest wall pain Disposition: HOME, SELF-CARE Condition: Stable Departure-Patient Inst. Decision time for Depature: 12:12 Referrals: [facility] [place] Primary Care Physician Patient Instructions: Acute Bronchitis in Adults Add. Discharge Instructions: 1. Antibiotics and steroids as directed. Return to ER for any concerns 3P follow-up with your doctor next week. Scripts Prednisone (Prednisone) 20 Mg Tab 40 MG PO DAILY, #8 TAB Prov: GIL COOK APRN 05/06/18 Azithromycin (Zithromax) 250 Mg Tablet 250 MG PO UD, #6 TAB TAKE 2 TABLETS TODAY, THEN TAKE 1 TABLET DAILY FOR 4 MORE DAYS Prov: GIL COOK APRN 05/06/18 Hydrocodone/Acetaminophen ([place] 5-325 Tablet) 1 Each Tablet 1 EACH PO Q6H PRN for PAIN-MODERATE MDD 10, #10 TAB Prov: GIL COOK APRN 05/06/18 Work/School Note: Work Release Form Date Seen in the Emergency Department: May 06, 2018 Return to Work: May 08, 2018 GIL COOK APRN May 06, 2018 12:13
[2018-05-06 12:42] VITALS: BP 133/95
--- NOTE | 2018-05-06 12:51 | Diagnostic Imaging Report ---
INDICATION: Chest pain under right breast x 4 hours. PA and lateral chest obtained at 12:48 p.m. Heart and mediastinal silhouette are normal in appearance. The lungs are clear. There is no pneumothorax or pleural fluid. IMPRESSION: Negative chest. Dictated by: Dictated on workstation # [id number]
== END 2018-05-06 12:50 | disposition home or self-care (01) ==
LOC: EDUNIT# 12:06 → ER 12:07
DX: R07.89 Other chest pain (principal); J40 Bronchitis, not specified as acute or chronic; Z79.52 Long term (current) use of systemic steroids; Z98.51 Tubal ligation status; Z87.448 Personal history of other diseases of urinary system
CPT/HCPCS: 71046

== ENCOUNTER 2019-08-30 19:54 | Emergency (ER) | payer MEDICAID, OTHER ==
[~2019-08-30] VITALS: Ht 154 cm; Wt 61.0 kg
[~2019-08-30 19:54] MED LIST changes: +AZIT250T PO; +HYDR-4226 PO
[2019-08-30] MEDS ORDERED: OSLT75C PO (21:05)
--- NOTE | 2019-08-30 21:05 | ED Pediatric Illness ---
HPI-Pediatric Illness General Chief Complaint: Fever-Adult/Adol Stated Complaint: FEVER,HEADACH Nursing Triage Note: pt presents to ed c/o fever and nausea x3 days Source: patient Exam Limitations: no limitations History of Present Illness Date Seen by Provider: Aug 30, 2019 Time Seen by Provider: 21:03 Initial Comments To Er with cough runny nose fever for a few days. Timing/Duration: 4-6 hours Severity: moderate Presenting Symptoms: vomiting Allergies and Home Medications Allergies Coded Allergies: NKANo Known Allergies (Verified Allergy, Unknown, 06/14/16) Home Medications Azithromycin 250 Mg Tablet, 250 MG PO UD TAKE 2 TABLETS TODAY, THEN TAKE 1 TABLET DAILY FOR 4 MORE DAYS Prescribed by: GIL COOK on 05/06/18 1213 Ciprofloxacin HCl 500 Mg Tablet, 500 MG PO BID Prescribed by: EUGENIA ALBERT on 07/12/17 0538 Hydrocodone/Acetaminophen 1 Each Tablet, 1 EACH PO Q6H PRN for PAIN-MODERATE Prescribed by: GIL COOK on 05/06/18 1213 Naproxen 500 Mg Tablet, 500 MG PO BID PRN for PAIN Prescribed by: GIL COOK on 09/02/16 1731 Oseltamivir Phosphate 75 Mg Cap, 75 MG PO BID Prescribed by: GIL COOK on 08/30/19 2105 Prednisone 20 Mg Tab, 40 MG PO DAILY Prescribed by: GIL COOK on 01/21/17 1321 Prednisone 20 Mg Tab, 40 MG PO DAILY Prescribed by: GIL COOK on 05/06/18 1213 [fLEXERIL] , 5 MG PO TID PRN for PAIN Prescribed by: GIL COOK on 09/02/16 1731 Patient Home Medication List Home Medication List Reviewed: Yes Review of Systems Review of Systems Constitutional: see HPI EENTM: see HPI Respiratory: no symptoms reported Cardiovascular: no symptoms reported Genitourinary: no symptoms reported Musculoskeletal: no symptoms reported Skin: no symptoms reported Psychiatric/Neurological: No Symptoms Reported PMH-Pediatrics Recent Foreign Travel: No Contact w/other who traveled: No Recent Infectious Disease Expo: No Hospitalization with Isolation: Denies Tetanus Booster (TDap): More than 5yrs Seasonal Allergies: No HX Surgeries: Yes (ovarian cyst) Hx Respiratory Disorders: No Hx Cardiovascular Disorders: No Hx Neurological Disorders: No Hx Reproductive Disorders: No Female Reproductive Disorders: Ovarian Cyst Hx Genitourinary Disorders: No Hx Gastrointestinal Disorders: No Hx Musculoskeletal Disorders: No Hx Endocrine Disorders: No HX ENT Disorders: No Hx Psychiatric Problems: No Hx Blood Disorders: No Significant Family History: No Pertinent Family Hx, Cancer, Diabetes Physical Exam-Pediatric Physical Exam Vital Signs - First Documented 08/30/19 20:33 Temp 36.8 Pulse 105 Resp 18 B/P (MAP) 122/89 (100) Pulse Ox 98 O2 Delivery Room Air Capillary Refill : Less Than 3 Seconds Height, Weight, BMI Height: 5'1.00" Weight: 130lbs. oz. 58.707610tw; 25.00 BMI Method:Stated General Appearance: no acute distress, see HPI, active General Appearance-Infants: nml consolability HENT: head inspection normal, fontanelle closed/normal Neck: non-tender, full range of motion Respiratory: normal breath sounds, no respiratory distress Gastrointestinal: normal bowel sounds, non tender Neurologic/Psychiatric: alert, normal mood/affect, oriented x 3 Skin: normal color, warm/dry Progress/Results/Core Measures Results/Orders Micro Results Microbiology 08/30/19 Influenza Types A,B Antigen (CARLOS) - Final, Complete My Orders Orders - GIL COOK APRN Rx-Ondansetron Po (Rx-Zofran Po) (08/30/19 21:09) Oseltamivir 75 Mg Capsule (Tamiflu 75 (08/30/19 21:15) Lorazepam Injection (Ativan Injection) (08/30/19 21:15) Vital Signs/I&O 08/30/19 20:33 Temp 36.8 Pulse 105 Resp 18 B/P (MAP) 122/89 (100) Pulse Ox 98 O2 Delivery Room Air Blood Pressure Mean: 100 Departure Impression Primary Impression: Flu Disposition: 01 HOME, SELF-CARE Condition: Critical Departure-Patient Inst. Decision time for Depature: 21:04 Referrals: [facility] (PCP/Family) Primary Care Physician Patient Instructions: Flu Add. Discharge Instructions: 1. Return to ER for any concerns 2. Follow up with your doctor next week All discharge instructions reviewed with patient and/or family. Voiced understanding. Scripts Oseltamivir Phosphate (Tamiflu) 75 Mg Cap 75 MG PO BID, #9 CAP Prov: GIL COOK APRN 08/30/19 Work/School Note: Work Release Form Date Seen in the Emergency Department: Aug 30, 2019 Return to Work: Sep 03, 2019 GIL COOK APRN Aug 30, 2019 21:05
[2019-08-30] MEDS ORDERED: RX-ONDANSETRON 4 MG ODT (ZOFRAN) PPK #4 PO STA (21:09)
[2019-08-30] MEDS ORDERED: LORazepam INJ 2 MG/ML (ATIVAN) VIAL IVP PRN (21:15)
[2019-08-30] MEDS ORDERED: OSELTAMIVIR 75 MG (TAMIFLU) CAPSULE PO ONE (21:15)
[2019-08-30 21:24] VITALS: BP 122/89
== END 2019-08-30 21:31 | disposition home or self-care (01) ==
LOC: EDUNIT# 19:54 → ER 19:55
DX: J11.1 Influenza due to unidentified influenza virus with other respiratory manifestations (principal); Z79.52 Long term (current) use of systemic steroids
CPT/HCPCS: 87804

== ENCOUNTER 2021-07-28 04:06 | Emergency (ER) | payer MEDICAID ==
[~2021-07-28] VITALS: Ht 155 cm; Wt 58.0 kg
[~2021-07-28 04:06] MED LIST changes: -CIPR500T4 PO; +CIPR500T5 PO; +OSLT75C PO
--- NOTE | 2021-07-28 05:24 | ED General ---
General Chief Complaint: COVID19 Suspect/Confirmed Stated Complaint: FEVER 99.7,SOB,BODY ACHES,LY,EAR PAIN,LIGHT HEADED Nursing Triage Note: PT AMB TO ER WITH C/O BODY ACHES AND FEVER THAT STARTED AROUND 10PM LAST NIGHT. Source of Information: Patient Exam Limitations: No Limitations History of Present Illness Date Seen by Provider: Jul 28, 2021 Time Seen by Provider: 04:16 Initial Comments This 35-year-old young lady presents to the emergency room along with her daughter. Both patients have flulike symptoms since last night. Bee has symptoms of intense headache, myalgia, fever, and shortness of breath. She has not been vaccinated for flu or Covid. Allergies and Home Medications Allergies Coded Allergies: Young Known Allergies (Verified Allergy, Unknown, 06/14/16) Patient Home Medication List Home Medication List Reviewed: Yes Azithromycin (Zithromax) 250 Mg Tablet, 250 MG PO UD Prescribed by: GIL COOK on 05/06/18 121 Ciprofloxacin HCl (Ciprofloxacin HCl) 500 Mg Tablet, 500 MG PO BID Prescribed by: EUGENIA ALBERT on 07/12/17 0538 Hydrocodone/Acetaminophen (Hydrocodone/Acetaminophen 5 MG/325 MG TAB) 1 Each Tablet, 1 EACH PO Q6H PRN for PAIN-MODERATE Prescribed by: GIL COOK on 05/06/18 121 Naproxen (Naprosyn) 500 Mg Tablet, 500 MG PO BID PRN for PAIN Prescribed by: GIL COOK on 09/02/16 173 Oseltamivir Phosphate (Tamiflu) 75 Mg Cap, 75 MG PO BID Prescribed by: GIL COOK on 08/30/19 210 Prednisone (Prednisone) 20 Mg Tab, 40 MG PO DAILY Prescribed by: GIL COOK on 01/21/17 132 Prednisone (Prednisone) 20 Mg Tab, 40 MG PO DAILY Prescribed by: GIL COOK on 05/06/18 1213 [fLEXERIL] , 5 MG PO TID PRN for PAIN Prescribed by: GIL COOK on 09/02/16 173 Review of Systems Review of Systems Constitutional: see HPI EENTM: no symptoms reported Respiratory: see HPI Cardiovascular: no symptoms reported Gastrointestinal: no symptoms reported Genitourinary: no symptoms reported : No Musculoskeletal: no symptoms reported Skin: no symptoms reported Psychiatric/Neurological: No Symptoms Reported Hematologic/Lymphatic: No Symptoms Reported Immunological/Allergic: no symptoms reported Past Kddqlnb-Llwkws-Cvflwb Hx Patient Social History Tobacco Use?: Yes Tobacco type used: Cigarettes Smoking Status: Current Everyday Smoker Substance use?: Yes Substance type: Marijuana Substance frequency: Once in a while Alcohol Use?: Yes Alcohol Frequency: Rarely Immunizations Up To Date Tetanus Booster (TDap): More than 5yrs Influenza Vaccine Up-to-Date: No; Not Current Seasonal Allergies Seasonal Allergies: No Past Medical History Surgeries: Yes (ovarian cyst) Tubal Ligation Respiratory: No Cardiac: No Neurological: No : No Last Menstrual Period: Jul 07, 2021 Reproductive Disorders: No Female Reproductive Disorders: Ovarian Cyst Genitourinary: No Gastrointestinal: No Musculoskeletal: No Endocrine: No HEENT: No Cancer: No Psychosocial: No Integumentary: No Blood Disorders: No Family Medical History No Pertinent Family Hx, Cancer, Diabetes Physical Exam Vital Signs Vital Signs - First Documented 07/28/21 04:15 Temp 37.3 Pulse 121 Resp 20 B/P (MAP) 145/91 (109) Pulse Ox 98 O2 Delivery Room Air Capillary Refill : Height, Weight, BMI Height: 5'1.00" Weight: 130lbs. oz. 58.553464qc; 24.00 BMI Method:Stated General Appearance: No Apparent Distress, WD/WN HEENT: PERRL/EOMI, Normal ENT Inspection, Pharynx Normal, Other (Cerumen impaction on the right) Neck: Normal Inspection Respiratory: Lungs Clear, Normal Breath Sounds, No Accessory Muscle Use, No Respiratory Distress, Other (Mild tachypnea) Cardiovascular: No Edema, No JVD, Tachycardia Gastrointestinal: Normal Bowel Sounds, Non Tender, Soft Extremity: Normal Inspection, Non Tender, No Pedal Edema Neurologic/Psychiatric: Alert, Oriented x3, No Motor/Sensory Deficits, Normal Mood/Affect Skin: Normal Color, Warm/Dry Progress/Results/Core Measures Suspected Sepsis SIRS Temperature: Pulse: 121 Respiratory Rate: 20 Blood Pressure 145 /91 Mean: 109 Results/Orders Lab Results Laboratory Tests Test 07/28/21 04:22 Range/Units Influenza Type A (RT-PCR) Not Detected Not Detecte Influenza Type B (RT-PCR) Not Detected Not Detecte SARS-CoV-2 RNA (RT-PCR) Detected H Not Detecte My Orders Orders - LANA HENDRICKSON MD Covid 19 Inhouse Test (07/28/21 04:16) Influenza A And B By Pcr (07/28/21 04:16) Vital Signs/I&O 07/28/21 04:15 Temp 37.3 Pulse 121 Resp 20 B/P (MAP) 145/91 (109) Pulse Ox 98 O2 Delivery Room Air Capillary Refill : Blood Pressure Mean: 109 Progress Note : Progress Note COVID-19 swab was positive. Other swabs were negative. She was stable and not hypoxic or in respiratory distress. We discussed supportive care and smoking cessation was advised. She does not meet criteria for monoclonal antibody therapy. Departure Impression Primary Impression: COVID-19 Additional Impression: Impacted cerumen of right ear Disposition: HOME, SELF-CARE Condition: Stable Departure-Patient Inst. Decision time for Depature: 05:10 Referrals: [facility] (PCP/Family) Primary Care Physician Patient Instructions: COVID-19 Overview, Ear Wax Impaction ED Add. Discharge Instructions: Drink plenty of clear liquids to stay well-hydrated. You may use ibuprofen up to 600 mg every 6 hours and/or Tylenol (acetaminophen) up to 1000 mg every 6 hours as needed for pain or fever. Remain in quarantine for at least 10 days and until your symptoms are improved. Use [id number] earwax removal drops such as Debrox to help remove earwax. Do not use Q-tips inserted into the ear canal. Work toward quitting smoking as rapidly as possible. Call with questions or concerns. Return to the ER with worsening symptoms or concerning new symptoms. All discharge instructions reviewed with patient and/or family. Voiced understanding. Work/School Note: Work Release Form Date Seen in the Emergency Department: Jul 28, 2021 Return to Work: Aug 06, 2021 Restrictions: Return-No Fever (24hrs) LANA HENDRICKSON MD Jul 28, 2021 05:24
[2021-07-28 05:45] VITALS: BP 150/86
== END 2021-07-28 05:43 | disposition home or self-care (01) ==
LOC: EDUNIT# 04:06 → ER 04:10
DX: U07.1 COVID-19 (principal); H61.21 Impacted cerumen, right ear; F17.210 Nicotine dependence, cigarettes, uncomplicated
CPT/HCPCS: 87636; 99283

== ENCOUNTER 2021-10-23 00:30 | Emergency (ER) | payer MEDICAID ==
[~2021-10-23] VITALS: Ht 152 cm; Wt 61.4 kg
[2021-10-23 00:35] VITALS: BP 138/100
--- NOTE | 2021-10-23 01:04 | ED Chest Pain ---
General Chief Complaint: Chest Pain Stated Complaint: SOB,CP,PASSED OUT, COLD Source: patient Exam Limitations: no limitations (BREA HILL STUDENT) History of Present Illness Date Seen by Provider: Oct 23, 2021 Time Seen by Provider: 00:45 Initial Comments Patient is a 36 year old female who presents with complaints of chest pain, numbness and tingling on right side of body, and headache. Reports that these symptoms started about 45 minutes prior to arrival. Took some ibuprofen at home for the headache. Reports that she had an argument with her daughter earlier this evening and was crying then developed chest pain, SOB, numbness and tingling of right side of body, and headache. Reports the chest pain started on the left side of her chest and then migrated to the right side of her chest. Rates the pain as a 6/10 and constant. Palpating the chest improves the pain. Coughing worsens the pain. Reports she's never had something like this happen before. She's breathing in the 40's on exam and refusing to open her eyes. Denies history of panic attacks and anxiety. Reports her about 8 months ago and has been more depressed and had difficulty coping. Denies drug use tonight. Admits to smoking cigarettes and occasional vaping of THC/CBD. Denies recent fevers, nausea, vomiting, dysuria, diarrhea, and sore throat. Timing/Duration: 1 hour Severity/Quality: moderate, sharp Location: substernal Radiation: no radiation Activities at Onset: emotional stress Modifying Factors: improves with coughing ASA po LOCK MAINTENANCE SUPERVISOR: No NTG SL LOCK MAINTENANCE SUPERVISOR: No Associated Symptoms: No back pain, No dizziness, No fever/chills, No heartburn, No nausea/vomiting, No shortness of breath (BRE[employer] H[employer] MED STUDENT) Initial Comments I have seen and examined the patinet - performed my own PE and HPI/PMH, etc. I have reviewed the medical student's documentation and agree with his documentation. (ROLAND OSHEA MD) Allergies and Home Medications Allergies Coded Allergies: NKANo Known Allergies (Verified Allergy, Unknown, 06/14/16) Patient Home Medication List Home Medication List Reviewed: Yes (ROLAND OSHEA MD) Azithromycin (Zithromax) 250 Mg Tablet, 250 MG PO UD Prescribed by: GIL COOK on 05/06/18 1213 Ciprofloxacin HCl (Ciprofloxacin HCl) 500 Mg Tablet, 500 MG PO BID Prescribed by: EUGENIA ALBERT on 07/12/17 0538 Hydrocodone/Acetaminophen (Hydrocodone/Acetaminophen 5 MG/325 MG TAB) 1 Each Tablet, 1 EACH PO Q6H PRN for PAIN-MODERATE Prescribed by: GIL COOK on 05/06/18 1213 Naproxen (Naprosyn) 500 Mg Tablet, 500 MG PO BID PRN for PAIN Prescribed by: GIL COOK on 09/02/16 1731 Oseltamivir Phosphate (Tamiflu) 75 Mg Cap, 75 MG PO BID Prescribed by: GIL COOK on 08/30/19 210 Prednisone (Prednisone) 20 Mg Tab, 40 MG PO DAILY Prescribed by: GIL COOK on 01/21/17 132 Prednisone (Prednisone) 20 Mg Tab, 40 MG PO DAILY Prescribed by: GIL COOK on 05/06/18 1213 [fLEXERIL] , 5 MG PO TID PRN for PAIN Prescribed by: GIL COOK on 09/02/16 173 Review of Systems Review of Systems Constitutional: no symptoms reported; No chills, No diaphoresis, No fever EENTM: No Symptoms Reported; No Blurred Vision, No Double Vision Respiratory: Denies Cough; Shortness of Air Cardiovascular: Chest Pain; Denies Edema, Denies Lightheadedness, Denies Syncope Gastrointestinal: No Symptoms Reported; Denies Constipated, Denies Diarrhea, Denies Nausea, Denies Vomiting Genitourinary: No Symptoms Reported; Denies Burning, Denies Drainage, Denies Frequency Musculoskeletal: no symptoms reported; No back pain, No joint pain, No joint swelling Skin: no symptoms reported; No change in color, No change in hair/nails Psychiatric/Neurological: Denies Anxiety; Depressed, Headache, Numbness (right arm, hip, knee, leg, and foot), Tingling (right arm, hip, knee, leg, and foot) Endocrine: No Symptoms Reported; Denies Excessive Sweating, Denies Flushing Hematologic/Lymphatic: No Symptoms Reported; Denies Easy Bleeding, Denies Easy Bruising ([employer] MED STUDENT) Cardiovascular: Chest Pain Musculoskeletal: other (pain in right shoulder and down her back - also in right hip and leg on my questioning and examination.) (ROLAND OSHEA MD) All Other Systems Reviewed Negative Unless Noted: Yes (BREA HILL [employer] STUDENT) Past Xiyukgy-Vwhnnp-Imyzif Hx Patient Social History Tobacco Use?: Yes Tobacco type used: Cigarettes (1/2 PPD) Smoking Status: Current Everyday Smoker Smokeless Tobacco Frequency: Never a User Use of E-Cig and/or Vaping dev: Yes E-Cig or Vaping type used: Marijuana, CBD Use of E-Cig and/or Vaping Sohan: Current Someday User Substance use?: No Alcohol Use?: No (BREA HILL [employer] STUDENT) Immunizations Up To Date Tetanus Booster (TDap): More than 5yrs (BREA HILL [employer] JOSE LUIS) Seasonal Allergies Seasonal Allergies: No (BREA HILL [employer] JOSE LUIS) Past Medical History Surgeries: Yes (ovarian cyst) Tubal Ligation Respiratory: No Cardiac: No Neurological: No Last Menstrual Period: Oct 20, 2021 Reproductive Disorders: Yes Female Reproductive Disorders: Ovarian Cyst Genitourinary: No Gastrointestinal: No Musculoskeletal: No Endocrine: No HEENT: No Loss of Vision: Denies Hearing Impairment: Denies Cancer: No Psychosocial: Yes Depression Integumentary: No Blood Disorders: No (BREA HILL [employer] STUDENT) Family Medical History No Pertinent Family Hx, Cancer, Diabetes (BREA HILL [employer] STUDENT) Physical Exam Vital Signs Vital Signs - First Documented 10/23/21 00:35 Temp 36.4 Pulse 98 Resp 32 B/P (MAP) 138/100 (113) Pulse Ox 100 O2 Delivery Room Air (ROLAND OSHEA MD) Vital Signs Capillary Refill : (BREA HILL [employer] STUDENT) Height, Weight, BMI Height: 5'1.00" Weight: 130lbs. oz. [id number]; 24.00 BMI Method:Stated General Appearance: No Apparent Distress, Anxious HEENT: PERRL/EOMI, Pharynx Normal, Other (edentulous) Neck: Full Range of Motion, Non Tender Respiratory: Chest Non Tender, Lungs Clear, Normal Breath Sounds, Other (tachypneic in the 40's on exam) Cardiovascular: No Edema, Normal Peripheral Pulses, Tachycardia (slightly tachy at 100-105) Gastrointestinal: Normal Bowel Sounds, Soft; No Distended, No Guarding Rectal: Deferred Extremity: Normal Capillary Refill, Normal Inspection, Non Tender, No Calf Tenderness Neurologic/Psychiatric: Alert, Oriented x3, Other (Anxious and hyperventilating on exam) Skin: Normal Color, Warm/Dry Lymphatic: No Adenopathy (Head and Neck) (BREA HILL MED STUDENT) General Appearance: No Apparent Distress, Other (laying quietly on her left side - states pain is "the same" as when she first came in - appears calm) HEENT: PERRL/EOMI Neck: Normal Inspection Respiratory: Lungs Clear, Normal Breath Sounds, No Accessory Muscle Use, No Respiratory Distress Cardiovascular: Regular Rate, Rhythm (tachy 98-100) Gastrointestinal: Non Tender, Soft Extremity: Normal Inspection, No Pedal Edema, Other (tender to palpation over the entire right shoulder. 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 Norm as Tested Skin: Normal Color, Warm/Dry (ROLAND OSHEA MD) Progress/Results/Core Measures Results/Orders Lab Results Laboratory Tests Test 10/23/21 01:16 Range/Units Urine Color YELLOW Urine Clarity CLEAR Urine pH 6.0 5-9 Urine Specific [place] 1.025 H 1.016-1.022 Urine Protein NEGATIVE NEGATIVE Urine Glucose (UA) NEGATIVE NEGATIVE Urine Ketones NEGATIVE NEGATIVE Urine Nitrite NEGATIVE NEGATIVE Urine Bilirubin NEGATIVE NEGATIVE Urine Urobilinogen 0.2 < = 1.0 MG/DL Urine Leukocyte Esterase 1+ H NEGATIVE Urine RBC (Auto) NEGATIVE NEGATIVE Urine RBC NONE /HPF Urine WBC RARE /HPF Urine Squamous Epithelial Cells 5-10 /HPF Urine Crystals NONE /LPF Urine Bacteria TRACE /HPF Urine Casts NONE /LPF Urine Mucus MODERATE H /LPF Urine Culture Indicated NO Urine Opiates Screen NEGATIVE NEGATIVE Urine Oxycodone Screen NEGATIVE NEGATIVE Urine Methadone Screen NEGATIVE NEGATIVE Urine Propoxyphene Screen NEGATIVE NEGATIVE Urine Barbiturates Screen NEGATIVE NEGATIVE Ur Tricyclic Antidepressants Screen NEGATIVE NEGATIVE Urine Phencyclidine Screen NEGATIVE NEGATIVE Urine Amphetamines Screen POSITIVE H NEGATIVE Urine Methamphetamines Screen POSITIVE H NEGATIVE Urine Benzodiazepines Screen NEGATIVE NEGATIVE Urine Cocaine Screen NEGATIVE NEGATIVE Urine Cannabinoids Screen POSITIVE H NEGATIVE (ROLAND OSHEA MD) My Orders Orders - ROLAND OSHEA MD Ekg Tracing (10/23/21 00:57) Urine Bedside (10/23/21 00:57) Drug Screen Stat (Urine) (10/23/21 00:57) Chest 1 View, Ap/Pa Only (10/23/21 00:57) Ua Culture If Indicated (10/23/21 01:35) Ketorolac Injection (Toradol Injection) (10/23/21 01:45) Orphenadrine Inj (Ed Only) (Norflex Inje (10/23/21 01:45) (ROLAND OSHEA MD) Medications Given in ED Current Medications Medications Dose Ordered Sig/Nicolette Route Start Time Stop Time Status Last Admin Dose Admin Ketorolac Tromethamine 60 mg ONCE ONCE IM 10/23/21 01:45 10/23/21 01:47 DC 10/23/21 01:43 60 MG Orphenadrine Citrate 60 mg ONCE ONCE IM 10/23/21 01:45 10/23/21 01:47 DC 10/23/21 01:40 60 MG (ROLAND OSHEA MD) Vital Signs/I&O 10/23/21 00:35 Temp 36.4 Pulse 98 Resp 32 B/P (MAP) 138/100 (113) Pulse Ox 100 O2 Delivery Room Air (ROLAND OSHEA MD) Progress Progress Note : Time: 02:02 Progress Note EKG reviewed, normal without ectopy or ST elevation or depression. Patient risk factor for CAD - smoking. No hypertension, high cholesterol, previous CAD diagnosis; neg fam history. No recent prolonged immobility or personal/family history of blood clots. Review of prior labs from 2017 shows history of methamphetamine use. Patient complaints of pain inconsistent with presentation of CAD. More similar to panic attack. Drug screen positive again today for methamphetamine and THC. I suspect these are contributing factors. CXR normal. urine preg neg. UA neg for infection (with complaint to me of lower abdominal discomfort). Treated with Norflex and toradol in the ED. COntinues to improve. Rec home with NSAIDS and follow up with PCP. REturn precautions given. (ROLAND OSHEA MD) Initial ECG Impression Date: Oct 23, 2021 Initial ECG Impression Time: 00:37 Initial ECG Rate: 92 Initial ECG Rhythm: Normal Sinus Initial ECG Intervals: Normal Initial ECG Impression: Normal (ROLAND OSHEA MD) Diagnostic Imaging Diagonstic Imaging: Xray Plain Films/CT/US/NM/MRI: chest Comments Negative/stable chest Reviewed: Reviewed by Me (ROLAND OSHEA MD) Counseling-Symptomatic: 3-10 Minutes Follow-up with PCP to: Discuss Further Options (ROLAND OSHEA MD) Departure Impression Primary Impression: Atypical chest pain Additional Impressions: Musculoskeletal pain, chronic Anxiety attack Disposition: 01 HOME, SELF-CARE Condition: Improved Departure-Patient Inst. Decision time for Depature: 02:06 (ROLAND OSHEA MD) Referrals: [facility] (PCP/Family) Primary Care Physician Patient Instructions: Chest Pain That Is Not Caused by the Heart (DC), Panic Attack ED Add. Discharge Instructions: Drink plenty of fluids to stay well hydrated. Over the counter ibuprofen 600mg (3 pills) every 6 hours with food as needed for pain. Use a heating pad or over the counter Lidocaine patches/pain relief patches as needed. Follow up with [facility] regarding your chronic neck/back/shoulder pain. Come back to the Emergency Department for any new, concerning or emergent com plaints. Work/School Note: Work Release Form Date Seen in the Emergency Department: Oct 23, 2021 Return to Work: Oct 24, 2021 Verification and Attestation of Medical Student E/M Service A medical student performed and documented this service in my presence. I reviewed and verified all information documented by the medical student and made modifications to such information, when appropriate. I personally performed the physical exam and medical decision making. Roland Oshea, Oct 23, 2021,03:57 (ROLAND OSHEA MD) Copy Copies To 1: CHARO RAMIREZ LUKE MED STUDENT Oct 23, 2021 01:04 ROLAND OSHEA MD Oct 23, 2021 02:05
[2021-10-23 01:37] LABS: BENZODIAZEPINES SCREEN URINE NEGATIVE (NEGATIVE); COCAINE SCREEN URINE NEGATIVE (NEGATIVE)
[2021-10-23 01:38] LABS: AMPHETAMINE SCREEN, URINE POSITIVE (NEGATIVE); BARBITURATE SCREEN URINE NEGATIVE (NEGATIVE); CANNABINOID SCREEN, URINE POSITIVE (NEGATIVE); METHADONE STAT NEGATIVE (NEGATIVE); METHAMPHETAMINE SCREEN URINE S POSITIVE (NEGATIVE); OPIATE SCREEN URINE NEGATIVE (NEGATIVE); OXYCODONE STAT NEGATIVE (NEGATIVE); PROPOXYPHENE STAT NEGATIVE (NEGATIVE); TRICYCLIC ANTIDEPRESSANTS SCRE NEGATIVE (NEGATIVE)
[2021-10-23 01:39] LABS: BILIRUBIN,URINE NEGATIVE (NEGATIVE); CLARITY,URINE CLEAR; COLOR,URINE YELLOW; GLUCOSE, URINE (UA) NEGATIVE (NEGATIVE); KETONES,URINE NEGATIVE (NEGATIVE); LEUKOCYTE ESTERASE ,URINE 1+ (NEGATIVE); NITRITE,URINE NEGATIVE (NEGATIVE); PROTEIN,URINE NEGATIVE (NEGATIVE)
[2021-10-23] MEDS ORDERED: KETOROLAC 60 MG/2 ML VIAL IM ONE (01:45)
[2021-10-23] MEDS ORDERED: ORPHENADRINE 60 MG/2 ML (NORFLEX) AMP (ED ONLY) IM ONE (01:45)
[2021-10-23 01:50] LABS: BACTERIA,URINE TRACE /HPF; WBC,URINE RARE /HPF
--- NOTE | 2021-10-23 05:31 | Diagnostic Imaging Report ---
INDICATION: Chest pain. EXAMINATION: Chest 10/23/2021 FINDINGS: The cardiomediastinal silhouette is unremarkable. The pulmonary vasculature is within normal limits. The lungs and pleural spaces are clear. IMPRESSION: No evidence of an acute cardiopulmonary process. Dictated by: Dictated on workstation # [id number]
[2021-10-23] MEDS ORDERED: DOXY100T2 PO (15:59)
[2021-10-23] MEDS ORDERED: METR-145 PO (15:59)
== END 2021-10-23 02:37 | disposition home or self-care (01) ==
LOC: EDUNIT# 00:30 → ER 00:32
DX: R07.89 Other chest pain (principal); G89.29 Other chronic pain; M79.18 Myalgia, other site; F41.9 Anxiety disorder, unspecified; R00.0 Tachycardia, unspecified; F17.210 Nicotine dependence, cigarettes, uncomplicated
CPT/HCPCS: 71045; 80306; 81000; 84703; 93005; 96372

== ENCOUNTER 2021-10-23 13:53 | Emergency (ER) | payer MEDICAID ==
--- NOTE | 2021-10-23 14:06 | ED Abdominal Pain ---
General Stated Complaint: WILFREDO HIP PAIN - ABD PAIN - PELVIC PAIN Source of Information: Patient Exam Limitations: No Limitations History of Present Illness Date Seen by Provider: Oct 23, 2021 Time Seen by Provider: 14:05 Initial Comments To ER by private vehicle with reports of low midline back pain that radiates around both hips and to the front of the abdomen. She is had painful intercourse for the past week denies vaginal discharge. Her boyfriend is at the bedside and states they have been together for 3 months. She denies any drug use but was found to be methamphetamine positive last night. Timing/Duration: 1-2 Days Severity/Quality: Moderate Location: Generalized Abdomen Radiation: No Radiation Activities at Onset: None Associated Symptoms: Denies Symptoms Allergies and Home Medications Allergies Coded Allergies: NKANo Known Allergies (Verified Allergy, Unknown, 06/14/16) Patient Home Medication List Home Medication List Reviewed: Yes Azithromycin (Zithromax) 250 Mg Tablet, 250 MG PO UD Prescribed by: GIL COOK on 05/06/18 121 Ciprofloxacin HCl (Ciprofloxacin HCl) 500 Mg Tablet, 500 MG PO BID Prescribed by: EUGENIA ALBERT on 07/12/17 0538 Doxycycline Hyclate (Doxycycline Hyclate) 100 Mg Tablet, 100 MG PO BID Prescribed by: GIL COOK on 10/23/21 155 Hydrocodone/Acetaminophen (Hydrocodone/Acetaminophen 5 MG/325 MG TAB) 1 Each Tablet, 1 EACH PO Q6H PRN for PAIN-MODERATE Prescribed by: GIL COOK on 05/06/18 121 Metronidazole (Metronidazole) 500 Mg Tablet, 500 MG PO BID Prescribed by: GIL COOK on 10/23/21 1559 Naproxen (Naprosyn) 500 Mg Tablet, 500 MG PO BID PRN for PAIN Prescribed by: GIL COOK on 09/02/16 173 Oseltamivir Phosphate (Tamiflu) 75 Mg Cap, 75 MG PO BID Prescribed by: GIL COOK on 08/30/19 210 Prednisone (Prednisone) 20 Mg Tab, 40 MG PO DAILY Prescribed by: GIL COOK on 01/21/17 1321 Prednisone (Prednisone) 20 Mg Tab, 40 MG PO DAILY Prescribed by: GIL COOK on 05/06/18 1213 [fLEXERIL] , 5 MG PO TID PRN for PAIN Prescribed by: GIL COOK on 09/02/16 173 Review of Systems Review of Systems Constitutional: see HPI EENTM: No Symptoms Reported Respiratory: No Symptoms Reported Cardiovascular: No Symptoms Reported Gastrointestinal: See HPI, Abdominal Pain Genitourinary: No Symptoms Reported Musculoskeletal: no symptoms reported Skin: no symptoms reported Psychiatric/Neurological: No Symptoms Reported Endocrine: No Symptoms Reported Hematologic/Lymphatic: No Symptoms Reported Past Wmqgchf-Sdgatb-Qsunzp Hx Immunizations Up To Date Tetanus Booster (TDap): More than 5yrs Seasonal Allergies Seasonal Allergies: No Past Medical History Surgeries: Yes (ovarian cyst) Tubal Ligation Respiratory: No Cardiac: No Neurological: No Reproductive Disorders: Yes Female Reproductive Disorders: Ovarian Cyst Genitourinary: No Gastrointestinal: No Musculoskeletal: No Endocrine: No HEENT: No Loss of Vision: Denies Hearing Impairment: Denies Cancer: No Psychosocial: Yes Depression Integumentary: No Blood Disorders: No Family Medical History No Pertinent Family Hx, Cancer, Diabetes Physical Exam Vital Signs Vital Signs - First Documented 10/23/21 14:05 Temp 36.6 Pulse 125 Resp 16 B/P (MAP) 119/83 (95) Pulse Ox 100 O2 Delivery Room Air Capillary Refill : Height/Weight/BMI Height: 5'1.00" Weight: 130lbs. oz. 58.852975rs; 26.00 BMI Method:Stated General Appearance: WD/WN, no apparent distress HEENT: PERRL/EOMI, normal ENT inspection Neck: non-tender, full range of motion Respiratory: no respiratory distress, no accessory muscle use Cardiovascular: no murmur, tachycardia Gastrointestinal: normal bowel sounds, soft, tenderness Extremities: normal range of motion, non-tender Back: normal inspection; No vertebral tenderness Neurologic/Psychiatric: alert, normal mood/affect, oriented x 3 Skin: normal color, warm/dry Progress/Results/Core Measures Results/Orders Lab Results Laboratory Tests Test 10/23/21 13:02 10/23/21 14:09 Range/Units Chlamydia DNA Probe Not Detected Not Detected Neisseria gonorrhoeae DNA Probe Not Detected Not Detected White Blood Count 8.2 4.3-11.0 10^3/uL Red Blood Count 4.11 3.80-5.11 10^6/uL Hemoglobin 12.8 11.5-16.0 g/dL Hematocrit 37 35-52 % Mean Corpuscular Volume 91 80-99 fL Mean Corpuscular Hemoglobin 31 25-34 pg Mean Corpuscular Hemoglobin Concent 34 32-36 g/dL Red Cell Distribution Width 14.2 10.0-14.5 % Platelet Count 355 130-400 10^3/uL Mean Platelet Volume 10.4 9.0-12.2 fL Immature Granulocyte % (Auto) 1 % Neutrophils (%) (Auto) 84 H 42-75 % Lymphocytes (%) (Auto) 4 L 12-44 % Monocytes (%) (Auto) 11 0-12 % Eosinophils (%) (Auto) 1 0-10 % Basophils (%) (Auto) 1 0-10 % Neutrophils # (Auto) 6.9 1.8-7.8 10^3/uL Lymphocytes # (Auto) 0.3 L 1.0-4.0 10^3/uL Monocytes # (Auto) 0.9 0.0-1.0 10^3/uL Eosinophils # (Auto) 0.0 0.0-0.3 10^3/uL Basophils # (Auto) 0.1 0.0-0.1 10^3/uL Immature Granulocyte # (Auto) 0.0 0.0-0.1 10^3/uL Neutrophils % (Manual) 83 % Lymphocytes % (Manual) 6 % Monocytes % (Manual) 10 % Band Neutrophils 1 % Blood Morphology Comment NORMAL Sodium Level 138 135-145 MMOL/L Potassium Level 3.8 3.6-5.0 MMOL/L Chloride Level 108 H 98-107 MMOL/L Carbon Dioxide Level 17 L 21-32 MMOL/L Anion Gap 13 5-14 MMOL/L Blood Urea Nitrogen 9 7-18 MG/DL Creatinine 0.75 0.60-1.30 MG/DL Estimat Glomerular Filtration Rate 106 BUN/Creatinine Ratio 12 Glucose Level 143 H 70-105 MG/DL Calcium Level 9.5 8.5-10.1 MG/DL Corrected Calcium 9.4 8.5-10.1 MG/DL Total Bilirubin 0.3 0.1-1.0 MG/DL Aspartate Amino Transf (AST/SGOT) 12 5-34 U/L Alanine Aminotransferase (ALT/SGPT) 19 0-55 U/L Alkaline Phosphatase 81 40-136 U/L Total Protein 6.8 6.4-8.2 GM/DL Albumin 4.1 3.2-4.5 GM/DL Serum Test, Qualitative NEGATIVE NEGATIVE Micro Results Microbiology 10/23/21 Genital Culture - Preliminary, Resulted Usual Vaginal Natalia 10/23/21 Wet Prep - Final, Resulted My Orders Orders - GIL COOK UTILITY AGENT Cbc With Automated Diff (10/23/21 14:06) Comprehensive Metabolic Panel (10/23/21 14:06) Ed Iv/Invasive Line Start (10/23/21 14:06) Hcg,Qualitative Serum (10/23/21 14:06) Ketorolac Injection (Toradol Injection) (10/23/21 14:15) Lorazepam Injection (Ativan Injection) (10/23/21 14:15) Ct Abdomen/Pelvis W (10/23/21 14:06) Neisseria Gonorrhea Swab (10/23/21 14:06) Chlamydia Trachomatis Swab (10/23/21 14:06) Genital Culture (10/23/21 14:06) Wet Prep (10/23/21 14:06) Iohexol Injection (Omnipaque 350 Mg/Ml 1 (10/23/21 14:15) Received Contrast (Hold Metformin- Contr (10/23/21 14:15) Ns (Ivpb) (Sodium Chloride 0.9% Ivpb Bag (10/23/21 14:15) Sodium Chloride Flush (Catheter Flush Sy (10/23/21 14:15) Manual Differential (10/23/21 14:09) Lactated Ringers (Lr 1000 Ml Iv Solution (10/23/21 16:00) Medications Given in ED Vital Signs/I&O 10/23/21 10/23/21 14:05 16:34 Temp 36.6 36.3 Pulse 125 102 Resp 16 16 B/P (MAP) 119/83 (95) 117/86 Pulse Ox 100 99 O2 Delivery Room Air Room Air Departure Communication (Admissions) 4434-she is now sleeping and arousable to loud verbal stimuli and gentle sha elaine. Answers questions appropriately and falls back to sleep quickly. Suspect this is a combination of her lorazepam 1 mg IV push in addition to coming down off of her methamphetamines. She states that she has not used them in 2 days but she did use them 2 days ago. Impression Primary Impression: Bacterial vaginosis Additional Impression: Pelvic pain Disposition: 01 HOME, SELF-CARE Condition: Stable Departure-Patient Inst. Decision time for Depature: 15:58 Referrals: [facility] (PCP/Family) Primary Care Physician Patient Instructions: Bacterial Vaginosis ED Scripts Doxycycline Hyclate (Doxycycline Hyclate) 100 Mg Tablet 100 MG PO BID, #20 TAB 0 Refills Prov: GIL COOK APRN 10/23/21 Metronidazole (Metronidazole) 500 Mg Tablet 500 MG PO BID, #14 TAB Prov: GIL COOK APRN 10/23/21 Work/School Note: Work Release Form Date Seen in the Emergency Department: Oct 25, 2021 Return to Work: Oct 26, 2021 GIL COOK APRN Oct 23, 2021 14:06
[2021-10-23] MEDS ORDERED: LORazepam INJ 2 MG/ML (ATIVAN) VIAL IVP ONE (14:15)
[2021-10-23] MEDS ORDERED: CATHETER FLUSH 10 ML SYR IV PRN (14:15)
[2021-10-23] MEDS ORDERED: NS 100 ML (IVPB) BAG IV ONE (14:15)
[2021-10-23] MEDS ORDERED: IOHEXOL 350 MG/ML 100 ML (OMNIPAQUE 350) VIAL IV ONE (14:15)
[2021-10-23] MEDS ORDERED: KETOROLAC 30 MG/ML VIAL IVP ONE (14:15)
[2021-10-23] MEDS ORDERED: HOLD METFORMIN - RECEIVED CONTRAST 20 ML VIAL IV SCH (14:15)
[2021-10-23 14:39] LABS: BASOPHILS # (AUTO) 0.1 10^3/uL (0.0-0.1); BASOPHILS % (AUTO) 1 % (0-10); EOSINOPHILS % (AUTO) 1 % (0-10); HEMATOCRIT 37 % (35-52); HEMOGLOBIN 12.8 g/dL (11.5-16.0); LYMPHOCYTES # (AUTO) 0.3 10^3/uL (1.0-4.0); LYMPHOCYTES % (AUTO) 4 % (12-44); MEAN CORPUSCULAR HEMOGLOBIN 31 pg (25-34); MEAN CORPUSCULAR HGB CONC 34 g/dL (32-36); MEAN CORPUSCULAR VOLUME 91 fL (80-99); MEAN PLATELET VOLUME 10.4 fL (9.0-12.2); MONOCYTES # (AUTO) 0.9 10^3/uL (0.0-1.0); MONOCYTES % (AUTO) 11 % (0-12); NEUTROPHILS # (AUTO) 6.9 10^3/uL (1.8-7.8); NEUTROPHILS % (AUTO) 84 % (42-75); PLATELET COUNT 355 10^3/uL (130-400); WHITE BLOOD COUNT 8.2 10^3/uL (4.3-11.0)
[2021-10-23 14:49] LABS: ALBUMIN 4.1 GM/DL (3.2-4.5); POTASSIUM 3.8 MMOL/L (3.6-5.0)
[2021-10-23 14:50] LABS: CALCIUM 9.5 MG/DL (8.5-10.1)
[2021-10-23 14:51] LABS: TOTAL PROTEIN 6.8 GM/DL (6.4-8.2)
[2021-10-23 14:53] LABS: BILIRUBIN,TOTAL 0.3 MG/DL (0.1-1.0)
[2021-10-23 14:55] LABS: CREATININE SERUM 0.75 MG/DL (0.60-1.30)
[2021-10-23 15:11] LABS: BAND NEUTROPHILS 1 %; LYMPHOCYTES % (MANUAL) 6 %; MONOCYTES % (MANUAL) 10 %; NEUTROPHILS % (MANUAL) 83 %; RBC MORPH NORMAL
--- NOTE | 2021-10-23 15:37 | Diagnostic Imaging Report ---
PROCEDURE: CT abdomen and pelvis with contrast. TECHNIQUE: Multiple contiguous axial images were obtained through the abdomen and pelvis after administration of intravenous contrast. Auto Exposure Controls were utilized during the CT exam to meet ALARA standards for radiation dose reduction. All CT scans use one or more of the following dose optimizing techniques: automated exposure control, MA and/or KvP adjustment based on patient size and exam type or iterative reconstruction. INDICATION: Lower abdominal and pelvic pain. FINDINGS: There is an approximately 1 cm subcapsular low-density focus in the dome of the right lobe of the liver. This could represent cyst or hemangioma. Otherwise no focal hepatic, gallbladder, pancreatic, adrenal gland or splenic abnormality is identified. Kidneys are also unremarkable. There is no hydronephrosis. No bowel obstruction is seen. There is no evidence of free fluid within the abdomen or pelvis. Surgical sutures seen adjacent to the cecum likely related to appendectomy. There is no evidence of intrauterine device complication. Unopacified bladder is unremarkable. There is normal lumbar spinal curvature and alignment. Vertebral body heights and disc spaces are maintained. No acute osseous abnormality is seen. IMPRESSION: No acute abnormality is identified. Intrauterine device appears to be in good position. There may be an approximately 1 cm cyst or hemangioma in the dome of the right lobe of the liver. Dictated by: Dictated on workstation # [id number]
[2021-10-23] MEDS ORDERED: METR-145 PO (15:59)
[2021-10-23] MEDS ORDERED: DOXY100T2 PO (15:59)
[2021-10-23] MEDS ORDERED: LACTATED RINGERS 1,000 ML IV SCH (16:00)
[2021-10-23 16:34] VITALS: BP 117/86
== END 2021-10-23 16:34 | disposition home or self-care (01) ==
LOC: EDUNIT# 13:53 → ER 13:54
DX: N76.0 Acute vaginitis (principal); R10.2 Pelvic and perineal pain
CPT/HCPCS: 36415; 74177; 80053; 84703; 85007; 85027; 87070; 87077; 87205; 87210; 87491; 87591; 96374; 96375

== ENCOUNTER 2022-04-18 10:05 | Emergency (ER) | payer MEDICAID ==
[~2022-04-18] VITALS: Ht 152.4 cm; Wt 66.0 kg
[~2022-04-18 10:05] MED LIST changes: +DOXY100T2 PO; +METR-145 PO
--- NOTE | 2022-04-18 10:40 | ED General ---
General Chief Complaint: COVID19 Suspect/Confirmed Stated Complaint: BODY ACHES,FEVER,LY,CP,SOB Source of Information: Patient Exam Limitations: Other (Pt difficult to arouse, answers some questions) ([employer] MED STUDENT) History of Present Illness Date Seen by Provider: Apr 18, 2022 Time Seen by Provider: 10:37 Initial Comments Bee Andre is a 36 yo female who presents for body aches, chills, LY, CP and SOA. Pt denies past medical hx or any medications. Pt is visibily uncomfortable, writhing around in bed, crying and stating her whole body hurts. She answers abhilash e questions, but does not respond to others. For this reason, hx was difficult to obtain. Pt reports four days ago she started to have chest pain then two days ago started to have a cough and now today she has body aches, chills, nausea and a LY. Of note, pt reports she last used methamphetamines four days ago and her daughter tested positive for COVID several days ago. She does admit to some SOA d/t generalized body aches and it hurting to breath. Pt denies dysuria, frequency, vomiting, diarrhea, constipation, rashes, lumps, lesions, numbness or weakness. Pt smokes 1ppd and drinks ETOH "occasionally". Pts vitals are stable in the ED. Timing/Duration: 4-5 Days Associated Systoms: Fever/Chills, Headaches, Malaise, Nausea/Vomiting, Shortness of Air ([employer] MED STUDENT) Allergies and Home Medications Allergies Coded Allergies: No Known Drug Allergies (Unverified , 04/18/22) Patient Home Medication List Home Medication List Reviewed: Yes (ROLAND OSHEA MD) Azithromycin (Zithromax) 250 Mg Tablet, 250 MG PO UD Prescribed by: GIL COOK on 05/06/18 1213 Ciprofloxacin HCl (Ciprofloxacin HCl) 500 Mg Tablet, 500 MG PO BID Prescribed by: EUGENIA ALBERT on 07/12/17 0538 Doxycycline Hyclate (Doxycycline Hyclate) 100 Mg Tablet, 100 MG PO BID Prescribed by: GIL COOK on 10/23/21 9349 Hydrocodone/Acetaminophen (Hydrocodone/Acetaminophen 5 MG/325 MG TAB) 1 Each Tablet, 1 EACH PO Q6H PRN for PAIN-MODERATE Prescribed by: GIL COOK on 05/06/18 1213 Metronidazole (Metronidazole) 500 Mg Tablet, 500 MG PO BID Prescribed by: GIL COOK on 10/23/21 1559 Naproxen (Naprosyn) 500 Mg Tablet, 500 MG PO BID PRN for PAIN Prescribed by: GIL COOK on 09/02/16 173 Oseltamivir Phosphate (Tamiflu) 75 Mg Cap, 75 MG PO BID Prescribed by: GIL COOK on 08/30/19 210 Prednisone (Prednisone) 20 Mg Tab, 40 MG PO DAILY Prescribed by: GIL COOK on 01/21/17 132 Prednisone (Prednisone) 20 Mg Tab, 40 MG PO DAILY Prescribed by: GIL COOK on 05/06/18 1213 [fLEXERIL] , 5 MG PO TID PRN for PAIN Prescribed by: GIL COOK on 09/02/16 173 Review of Systems Review of Systems Constitutional: chills; No fever EENTM: blurred vision; No vision loss Respiratory: No cough; short of breath Gastrointestinal: No abdominal pain, No constipation, No diarrhea; nausea; No vomiting Genitourinary: No dysuria, No frequency Musculoskeletal: other (generalized body aches) Skin: No lesions, No lumps, No rash Psychiatric/Neurological: Headache; Denies Numbness, Denies Weakness Hematologic/Lymphatic: No Symptoms Reported Immunological/Allergic: no symptoms reported ([employer]) Past Bmtlugs-Mkmjnn-Oiogst Hx Patient Social History Tobacco Use?: Yes Tobacco type used: Cigarettes Smoking Status: Current Everyday Smoker Use of E-Cig and/or Vaping dev: No Substance use?: No Alcohol Use?: No Pt feels they are or have been: No ([employer] STUDENT) Immunizations Up To Date Tetanus Booster (TDap): More than 5yrs Influenza Vaccine Up-to-Date: No; Not Current ([employer] JOSE LUIS) Seasonal Allergies Seasonal Allergies: No ([employer] JOSE LUIS) Past Medical History Surgery/Hospitalization HX: denies Surgeries: Yes (ovarian cyst) Tubal Ligation Respiratory: No Cardiac: No Neurological: No Reproductive Disorders: Yes Female Reproductive Disorders: Ovarian Cyst Genitourinary: No Gastrointestinal: No Musculoskeletal: No Endocrine: No HEENT: No Loss of Vision: Denies Hearing Impairment: Denies Cancer: No Psychosocial: Yes Depression Integumentary: No Blood Disorders: No ([employer] MED STUDENT) Family Medical History No Pertinent Family Hx, Cancer, Diabetes ([employer] STUDENT) Physical Exam Vital Signs Vital Signs - First Documented 04/18/22 10:10 Temp 37.3 Pulse 111 Resp 22 B/P (MAP) 140/94 (109) Pulse Ox 97 O2 Delivery Room Air (ROLAND OSHEA MD) Vital Signs Capillary Refill : Less Than 3 Seconds ([employer] STUDENT) Height, Weight, BMI Height: 5'1.00" Weight: 130lbs. oz. [id number]; 26.00 BMI Method:Stated General Appearance: No Apparent Distress, WD/WN HEENT: PERRL/EOMI, Pharynx Normal, Moist Mucous Membranes, Other (upper and lower eyelid erythema and edema, likely from crying and rubbing eyes) Neck: Full Range of Motion, Normal Inspection Respiratory: Chest Non Tender, Lungs Clear, Normal Breath Sounds Cardiovascular: No Murmur, Tachycardia Gastrointestinal: Normal Bowel Sounds, Non Tender, Soft Extremity: Non Tender, No Pedal Edema Neurologic/Psychiatric: Depressed Affect, Other (depressed affect, sleeps between questions, only responds to some things) Skin: Normal Color, Warm/Dry Lymphatic: No Adenopathy ([employer] MED STUDENT) Progress/Results/Core Measures Suspected Sepsis SIRS Temperature: Pulse: Respiratory Rate: Blood Pressure / Mean: ([employer]) Results/Orders Lab Results Laboratory Tests Test 04/18/22 10:15 04/18/22 11:10 Range/Units SARS-CoV-2 RNA (RT-PCR) Detected H Not Detecte Urine Opiates Screen NEGATIVE NEGATIVE Urine Oxycodone Screen NEGATIVE NEGATIVE Urine Methadone Screen NEGATIVE NEGATIVE Urine Propoxyphene Screen NEGATIVE NEGATIVE Urine Barbiturates Screen NEGATIVE NEGATIVE Ur Tricyclic Antidepressants Screen NEGATIVE NEGATIVE Urine Phencyclidine Screen NEGATIVE NEGATIVE Urine Amphetamines Screen POSITIVE H NEGATIVE Urine Methamphetamines Screen POSITIVE H NEGATIVE Urine Benzodiazepines Screen NEGATIVE NEGATIVE Urine Cocaine Screen NEGATIVE NEGATIVE Urine Cannabinoids Screen NEGATIVE NEGATIVE (ROLAND OSHEA MD) My Orders Orders - ROLAND OSHEA MD Ekg Tracing (04/18/22 10:38) Covid 19 Inhouse Test (04/18/22 10:38) Isolation Central Supply Req (04/18/22 10:38) Urine Bedside (04/18/22 10:38) Drug Screen Stat (Urine) (04/18/22 10:38) Lorazepam Tablet (Ativan Tablet) (04/18/22 11:20) Acetaminophen Tablet (Tylenol Tablet) (04/18/22 11:30) (ROLAND OSHEA MD) Medications Given in ED Current Medications Medications Dose Ordered Sig/Nicolette Route Start Time Stop Time Status Last Admin Dose Admin Acetaminophen 1,000 mg ONCE ONCE PO 04/18/22 11:30 04/18/22 11:31 DC 04/18/22 11:26 1,000 MG (ROLAND OSHEA MD) Vital Signs/I&O 04/18/22 10:10 Temp 37.3 Pulse 111 Resp 22 B/P (MAP) 140/94 (109) Pulse Ox 97 O2 Delivery Room Air (ROLAND OSHEA MD) Vital Signs/I&O Capillary Refill : Less Than 3 Seconds ([employer] MED STUDENT) Progress Note : Time: 10:55 Progress Note Will do COVID and influenza swabs, urine test. ([employer] MED STUDENT) Progress Note : Time: 11:51 Progress Note 36you female seen and evaluated by me. Covid-like symptoms onset 4 days ago after contact with her daughter who was found to be covid positive. Patient is very anxious, agitated. jittery - consistent with recent meth use - she states 4 days ago as well. SOB, body aches, subjective fever. No abdominal pain, n/v/d. no dysuria, urgency or frequency. Exam benign. Labs - Covid positive. REcommend supportive care at home. NSAIDS/acetaminophen. return precautions. (ROLAND OSHEA MD) ECG Initial ECG Impression Date: Apr 18, 2022 Initial ECG Impression Time: 10:58 Initial ECG Rhythm: Normal Sinus Initial ECG Intervals: Normal Initial ECG Impression: Normal ([employer] MED STUDENT) Counseling-Symptomatic: 3-10 Minutes Follow-up with PCP to: Discuss Further Options (ROLAND OSHEA MD) Departure Impression Primary Impression: COVID-19 Additional Impressions: Methamphetamine abuse Tobacco abuse Disposition: 01 HOME, SELF-CARE Condition: Stable Departure-Patient Inst. Decision time for Depature: 11:53 (ROLAND OSHEA MD) Referrals: [facility] (PCP/Family) Primary Care Physician Patient Instructions: COVID-19 (DC), Drug Abuse and Drug Addiction (DC), Quitting Smoking Add. 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 You can also switch between tylenol and ibuprofen as needed. Remember to always eat before taking ibuprofen. Drink plenty of water to stay hydrated. Return to the ER if you have feel like you can't breath, you are having chest pain, or your symptoms worsen. You will need to quarantine until tomorrow 04/19 since your symptoms started 4 days ago today. Stop smoking tobacco, this will worsen your COVID symptoms Stop smoking methamphetamines. Verification and Attestation of Medical Student E/M Service A medical student performed and documented this service in my presence. I reviewed and verified all information documented by the medical student and made modifications to such information, when appropriate. I personally performed the physical exam and medical decision making. Roland Oshea, Apr 18, 2022,11:54 (ROLAND OSHEA MD) Copy Copies To 1: CHARO RAMIREZ [place] A MED STUDENT Apr 18, 2022 10:40 ROLAND OSHEA MD Apr 18, 2022 11:54
[2022-04-18] MEDS ORDERED: LORazepam 0.5 MG (ATIVAN) TABLET PO STA (11:20)
[2022-04-18] MEDS ORDERED: ACETAMINOPHEN 500 MG TAB (TYLENOL) PO ONE (11:30)
[2022-04-18 11:33] LABS: AMPHETAMINE SCREEN, URINE POSITIVE (NEGATIVE); BARBITURATE SCREEN URINE NEGATIVE (NEGATIVE); BENZODIAZEPINES SCREEN URINE NEGATIVE (NEGATIVE); CANNABINOID SCREEN, URINE NEGATIVE (NEGATIVE); COCAINE SCREEN URINE NEGATIVE (NEGATIVE); METHADONE STAT NEGATIVE (NEGATIVE); OPIATE SCREEN URINE NEGATIVE (NEGATIVE); OXYCODONE STAT NEGATIVE (NEGATIVE); PROPOXYPHENE STAT NEGATIVE (NEGATIVE); TRICYCLIC ANTIDEPRESSANTS SCRE NEGATIVE (NEGATIVE)
[2022-04-18 12:00] VITALS: BP 123/90
== END 2022-04-18 12:00 | disposition home or self-care (01) ==
LOC: EDUNIT# 10:05 → ER 10:07
DX: U07.1 COVID-19 (principal); F15.10 Other stimulant abuse, uncomplicated; F17.210 Nicotine dependence, cigarettes, uncomplicated; Z28.310 Unvaccinated for COVID-19
CPT/HCPCS: 80306; 84703; 87636; 93005

== ENCOUNTER 2022-11-12 23:18 | Emergency (ER) | payer MEDICAID ==
[2022-11-12 23:27] VITALS: BP 140/101
--- NOTE | 2022-11-13 00:17 | ED General ---
General Chief Complaint: General Problems/Pain Stated Complaint: HOT FLASHES,NAUSEA,CRYING Nursing Triage Note: TO ED VIA POV AND AMBULATORY TO ROOM 5. PT COULD BE HEARD CRYING FROM INSIDE ER. PT COVERED FACE AND HAD TO BE STANDBY ASSISTED WITH WALKING TO ROOM. C/O HEADACHE, JAW PAIN, NAUSEA, "GETTING HOT" SINCE "SOMETIME THIS EVENING. INTERMITTENLY WAILING DURING TRIAGE. Source of Information: Patient (EXTREMELY DIFFICULT HISTORIAN, EXTREMELY DRAMATIC) History of Present Illness Date Seen by Provider: Nov 12, 2022 Time Seen by Provider: 23:37 Initial Comments PT ARRIVES VIA POV--WALKED INTO ER ON HER OWN PT WAILING VERY LOUDLY FROM WAITING ROOM, LAYING SIDEWAYS ACROSS WAITING ROOM CHAIRS, HANDS COVERING FACE--STATING SHE "CAN'T WALK" PT WAS ABLE TO GET UP AND WALK TO ER EXAM ROOM ON HER OWN PT STATES SHE WAS CRYING, AND THEN HER HEAD STARTED TO HURT AND THEN HER EYES STARTED TO HURT AND THEN HER JAWS STARTED TO HURT AND SHE STARTED TO GET NAUSEATED, AND SHE STARTED "GETTING HOT" UNABLE TO OBTAIN MORE INFORMATION THAN THAT PT IS MUMBLING--SPEECH DIFFICULT TO UNDERSTAND THERE IS NO CRYING AND NO TEARS NOTED. 9--ATTEMPTING TO ASK FURTHER QUESTIONS FROM PT, AND SHE SUDDENLY / IMMEDIATELY STOOD UP, BEGAN CURSING AND RANTING AND SPEECH IS NOW CLEAR AND STATES "YOU ALL ARE A BUNCH [employer] FUCKIN' ASSHOLES", AND PT VERY QUICKLY STORMED OUT OF ER WITHOUT ANY DIFFICULTY WHATSOEVER, SLAMMING DOORS AND YELLING AND CURSING ALL THE WAY. SHE SUDDENLY IS NO LONGER "WAILING" SHE LEFT BEFORE AMA PAPERS COULD BE GIVEN TO HER TO SIGN. Allergies and Home Medications Allergies Coded Allergies: No Known Drug Allergies (Unverified , 04/18/22) Patient Home Medication List Home Medication List Reviewed: Yes Azithromycin (Zithromax) 250 Mg Tablet, 250 MG PO UD Prescribed by: GIL COOK on 05/06/18 1213 Ciprofloxacin HCl (Ciprofloxacin HCl) 500 Mg Tablet, 500 MG PO BID Prescribed by: EUGENIA ALBERT on 07/12/17 0543 Doxycycline Hyclate (Doxycycline Hyclate) 100 Mg Tablet, 100 MG PO BID Prescribed by: GIL COOK on 10/23/21 2799 Hydrocodone/Acetaminophen (Hydrocodone/Acetaminophen 5 MG/325 MG TAB) 1 Each Tablet, 1 EACH PO Q6H PRN for PAIN-MODERATE Prescribed by: GIL COOK on 05/06/18 1213 Metronidazole (Metronidazole) 500 Mg Tablet, 500 MG PO BID Prescribed by: GIL COOK on 10/23/21 1559 Naproxen (Naprosyn) 500 Mg Tablet, 500 MG PO BID PRN for PAIN Prescribed by: GIL COOK on 09/02/16 1731 Oseltamivir Phosphate (Tamiflu) 75 Mg Cap, 75 MG PO BID Prescribed by: GIL COOK on 08/30/19 2105 Prednisone (Prednisone) 20 Mg Tab, 40 MG PO DAILY Prescribed by: GIL COOK on 01/21/17 1321 Prednisone (Prednisone) 20 Mg Tab, 40 MG PO DAILY Prescribed by: GIL COOK on 05/06/18 1213 [fLEXERIL] , 5 MG PO TID PRN for PAIN Prescribed by: GIL COOK on 09/02/16 173 Review of Systems Review of Systems Constitutional: see HPI Past Nzamoyh-Lzsjof-Gjucyk Hx Patient Social History Tobacco Use?: Yes Tobacco type used: Cigarettes Smoking Status: Current Everyday Smoker Substance use?: Yes Substance type: Methamphetamine, Marijuana Alcohol Use?: No Immunizations Up To Date Tetanus Booster (TDap): More than 5yrs Influenza Vaccine Up-to-Date: No; Not Current Seasonal Allergies Seasonal Allergies: No Past Medical History Surgery/Hospitalization HX: denies Surgeries: Yes (ovarian cyst) Tubal Ligation Respiratory: No Cardiac: No Neurological: No Last Menstrual Period: Nov 10, 2022 Reproductive Disorders: Yes Female Reproductive Disorders: Ovarian Cyst Genitourinary: No Gastrointestinal: No Musculoskeletal: No Endocrine: No HEENT: No Loss of Vision: Denies Hearing Impairment: Denies Cancer: No Psychosocial: Yes Depression Integumentary: No Blood Disorders: No Family Medical History No Pertinent Family Hx, Cancer, Diabetes Physical Exam Vital Signs Vital Signs - First Documented 11/12/22 23:27 Temp 36.6 Pulse 94 Resp 20 B/P (MAP) 140/101 (114) Pulse Ox 99 O2 Delivery Room Air Capillary Refill : Less Than 3 Seconds Height, Weight, BMI Height: 5'1.00" Weight: 130lbs. oz. [id number]; BMI Method:Stated General Appearance: Other (SEE HPI) Progress/Results/Core Measures Suspected Sepsis SIRS Temperature: Pulse: 94 Respiratory Rate: 20 Blood Pressure 140 /101 Mean: 114 Results/Orders Vital Signs/I&O 11/12/22 23:27 Temp 36.6 Pulse 94 Resp 20 B/P (MAP) 140/101 (114) Pulse Ox 99 O2 Delivery Room Air Capillary Refill : Less Than 3 Seconds Blood Pressure Mean: 114 Departure Impression Primary Impression: Left against medical advice Disposition: 07 AGAINST MEDICAL ADVICE Condition: Against Medical Advice Departure-Patient Inst. Referrals: [facility] (PCP/Family) Primary Care Physician MARILYN SIOMN DO Nov 13, 2022 00:16
== END 2022-11-12 23:40 | disposition left against medical advice (07) ==
LOC: EDUNIT# 23:18 → ER 23:21
DX: R11.0 Nausea (principal); R51.9 Headache, unspecified; R68.84 Jaw pain; F17.210 Nicotine dependence, cigarettes, uncomplicated; Z28.310 Unvaccinated for COVID-19
CPT/HCPCS: 99281